=== PATIENT | male | born 1945 | race Caucasian/White ===

== ENCOUNTER 2016-07-17 06:49 | Day surgery (SDC) | payer MEDICARE, BC ==
[~2016-07-17 06:49] MED LIST: Acetaminophen TAB* 325 MG PO PRN; Buffered Lidocaine 1% SYR 3ML* 3 ML/SYR SYRINGE INTRADERM ONE; Cyclopentolate 1% OPTH.SOL* 2 ML BTL ONE; Flurbiprofen 0.03% OPTH.SOL* 2.5 ML BTL ONE; Lidocaine 1% MPF* 2 ML VIAL ONE; Neomycin/Polymy/Dex OPHTH.OIN* 3.5 GM ONE; Phenylephrine 2.5% OPTH.SOL* 2 ML BTL ONE; Povidone Iodine 5% OPTH* 30 ML BTL ONE; Tetracaine 0.5% OPTH.SOL 4 ML* 1 DROP BTL ONE; acetaZOLAMIDE TAB* 250 MG ONE
[2016-07-17] MEDS ORDERED: fentaNYL* 50 MCG/ML 2 ML VIAL (100 MCG VIAL) ONE (07:19)
[2016-07-17] MEDS ORDERED: Midazolam* 1 MG/ML 2 ML VIAL (2 MG) ONE (07:20)
[2016-07-17 09:23] VITALS: BP 124/65
--- NOTE | 2016-07-17 15:37 | OP ---
DATE OF OPERATION: 07/17/16 - [facility] DATE OF : 45 SURGEON: Feng Herman MD ANESTHESIOLOGIST: Adilson Pandey MD ANESTHESIA: Monitored anesthesia care. PRE-OP DIAGNOSIS: Cataract of the right eye. 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 OPERATIVE PROCEDURE: Cataract extraction of the right eye. IMPLANTS: SN60WF 23.5 diopter lens to the right eye. COMPLICATIONS: None. DESCRIPTION OF PROCEDURE: The patient was given phenylephrine 2.5% and cyclopentolate 1% eye drops to the operative eye in the preoperative area. The patient was brought to the operating room, where a time-out was taken to identify the correct patient, site and side of the surgery. The patient's right eye was prepped and draped in the usual sterile fashion with 5% Betadine. A second time- out was taken to verify the correct patient, site, and side of surgery and correct lens selection. A lid speculum was placed to the right eye. A 1 mm paracentesis blade was used to make a clear corneal incision in the superotemporal position. Preservative-free 1% lidocaine was injected into the anterior chamber. DuoVisc was then injected into the anterior chamber. A 2.75 mm keratome blade was used to make a triplanar incision at the inferotemporal position. Then a Malyugin ring was inserted for mechanical pupillary dilation due to inadequate pupil dilation. A cystitome was used to initiate a capsulorrhexis which was completed with Utrata forceps in a continuous and curvilinear manner. Hydrodissection lens was then performed with a BSS on a cannula. The lens could be spun in the capsular bag. The phacoemulsification handpiece was then used with a [id number] technique to remove the nucleus in its entirety using 43.87 CDE. During the process of nucleus removal, additional viscoelastic was injected in the anterior chamber to protect the endothelium. The I/A handpiece was then used to remove the residual cortical lens material. During this step, the iris demonstrated a floppy iris syndrome and had to be mechanically reposited as it was prolapsing through the main incision. DuoVisc was then injected to inflate the capsular bag. The planned SN60WF 23.5 diopter lens was then injected into the capsular bag. Then the Malyugin ring was then removed from the eye using [place] technique. The residual DuoVisc was then removed from the eye with I/A handpiece. The corneal incisions were then hydrated and no leaks occurred at physiologic pressure around 20 mmHg per palpation. The lid speculum was then removed and drapes removed. Maxitrol ointment was then placed to the surface of the operative eye. An adhesive patch and shield were then placed on the operative eye. The patient was taken to the postoperative area in stable condition. [id number]/[facility] #: [id number] [facility] HEALTH SYSTEMTianna
== END 2016-07-17 09:29 | disposition home or self-care (01) ==
LOC: OREAST 06:49
PROVIDERS: ATTEND Student in an Organized Health Care Education/Training Program
DX: H25.11 Age-related nuclear cataract, right eye (principal); H21.81 Floppy iris syndrome; E11.9 Type 2 diabetes mellitus without complications; F17.210 Nicotine dependence, cigarettes, uncomplicated
CPT/HCPCS: A9270-GY; J2250; J3010; V2632

== ENCOUNTER 2016-07-24 06:32 | Day surgery (SDC) | payer MEDICARE, BC ==
[~2016-07-24 06:32] MED LIST changes: -Cyclopentolate 1% OPTH.SOL* 2 ML BTL ONE; -Flurbiprofen 0.03% OPTH.SOL* 2.5 ML BTL ONE; -Lidocaine 1% MPF* 2 ML VIAL ONE; -Neomycin/Polymy/Dex OPHTH.OIN* 3.5 GM ONE; -Phenylephrine 2.5% OPTH.SOL* 2 ML BTL ONE; -Povidone Iodine 5% OPTH* 30 ML BTL ONE; -Tetracaine 0.5% OPTH.SOL 4 ML* 1 DROP BTL ONE; -acetaZOLAMIDE TAB* 250 MG ONE
[2016-07-24] MEDS ORDERED: fentaNYL* 50 MCG/ML 2 ML VIAL (100 MCG VIAL) ONE (07:16)
[2016-07-24] MEDS ORDERED: Midazolam* 1 MG/ML 2 ML VIAL (2 MG) ONE (07:16)
[2016-07-24 08:28] VITALS: BP 109/57
--- NOTE | 2016-07-25 00:53 | OP ---
DATE OF OPERATION: 07/24/16 - [place] [facility] DATE OF : 45 SURGEON: Feng Herman MD ANESTHESIOLOGIST: Adilson Pandey MD ANESTHESIA: Monitored anesthesia care. PRE-OP DIAGNOSIS: Cataract of the left eye with floppy iris syndrome. POST-OP DIAGNOSIS: Cataract of the left eye with floppy iris syndrome. OPERATIVE PROCEDURE: Cataract extraction of the left eye. IMPLANTS: SN60WF 23.5 diopter lens to the left eye. COMPLICATIONS: None. DESCRIPTION OF PROCEDURE: The patient was given phenylephrine 2.5% and cyclopentolate 1% eye drops to the operative eye in the preoperative area. The patient was brought to the operating room, where a time-out was taken to identify the correct patient, site and side of the surgery. The patient's left eye was prepped and draped in the usual sterile fashion with 5% Betadine. A second time- out was taken to verify the correct patient, site, and side of surgery and correct lens selection. A lid speculum was placed to the left eye. A 1 mm paracentesis blade was used to make a clear corneal incision in the inferotemporal position. Preservative-free 1% lidocaine was injected into the anterior chamber. DuoVisc was then injected into the anterior chamber. A 2.75 mm keratome blade was used to make a triplanar incision at the superotemporal position. Then a Malyugin ring was inserted for mechanical pupillary dilation due to floppy iris syndrome as observed in the right eye during previous surgery. A cystotome was used to initiate a capsulorrhexis which was completed with Utrata forceps in a continuous and curvilinear manner. Hydrodissection lens was then performed with a BSS on a cannula. The lens could be spun in the capsular bag. The phacoemulsification handpiece was then used with a divide-and -conquer technique to remove the nucleus in its entirety with a 21.87 CDE. The I/A handpiece was then used to remove the residual cortical lens material. DuoVisc was then injected to inflate the capsular bag. The planned SN60WF 23.5 diopter lens was then injected into the capsular bag. The residual DuoVisc was then removed from the eye with I/A handpiece. The corneal incisions were then hydrated and no leaks occurred at physiologic pressure around 20 mmHg per palpation. The lid speculum was then removed and drapes removed. Maxitrol ointment was then placed to the surface of the operative eye. An adhesive patch and shield were then placed on the operative eye. The patient was taken to the postoperative area in stable condition. [id number]/[facility] #: [id number] MTDD
== END 2016-07-24 08:38 | disposition home or self-care (01) ==
LOC: OREAST 06:32 → EDSTATUS 07:45 → OREAST 08:38
PROVIDERS: ATTEND Student in an Organized Health Care Education/Training Program
DX: H25.12 Age-related nuclear cataract, left eye (principal); E10.3293 Type 1 diabetes mellitus with mild nonproliferative diabetic retinopathy without macular edema, bilateral; H21.81 Floppy iris syndrome; F17.210 Nicotine dependence, cigarettes, uncomplicated
CPT/HCPCS: J2250; J3010; V2632

== ENCOUNTER 2019-03-05 10:01 | Emergency (ER) | payer MEDICARE, BC ==
[2019-03-05 10:12] VITALS: BP 112/59
--- NOTE | 2019-03-05 10:40 | UC ---
Throat Pain/Nasal Jose Antonio HPI - HPI Summary HPI Summary: 73 yo diabetic smoker, with 3 day history of chest congestion and dry cough. He has a past history of pneumonia, and comes today because in his experience antibiotics have prevented progression to pneumonia in the past. No fever, no chest pain or dizziness. 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 Last visit here was 2016, negative CXR aside from hyperinflation, treated with zithromax. He has an inhaler which he does not use. - History of Current Complaint Chief Complaint: UCRespiratory Stated Complaint: COUGH, AND CHEST CONGESTION Time Seen by Provider: 03/05/19 10:29 Hx Obtained From: Patient Onset/Duration: Gradual Onset, Lasting Days - 4 Severity: Moderate Pain Intensity: 0 Cough: Nonproductive Associated Signs & Symptoms: Positive: Negative - Epiglottits Risk Factors Epiglottis Risk Factors: Negative - Allergies/Home Medications Allergies/Adverse Reactions: Allergies Allergy/AdvReac Type Severity Reaction Status Date / Time ciprofloxacin Allergy liver Verified 03/05/19 10:13 problems mesalamine [From Asacol] Allergy GI Upset Verified 03/05/19 10:13 PMH/Surg Hx/FS Hx/Imm Hx Endocrine History: Diabetes 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 - Surgical History Surgical History: Yes Surgery Procedure, Year, and Place: Back surgery l4/l5 fusion, Right wrist broken/repaired, Tonsillectomy - Family History Known Family History: Positive: Other - mother of lupus; father age 91 of old age. - Social History Occupation: Employed Full-time - [employer] Lives: With Family Alcohol Use: Rare Alcohol Amount: 3 beers a month Substance Use Type: None Smoking Status (MU): Heavy Every Day Tobacco Smoker Type: Cigarettes Amount Used/How Often: 1/2 ppd Length of Time of Smoking/Using Tobacco: since age [age] Have You Smoked in the Last Year: Yes - Immunization History Most Recent Influenza Vaccination: NEVER Most Recent Tetanus Shot: UTD Most Recent Pneumonia Vaccination: NEVER Review of Systems All Other Systems Reviewed And Are Negative: Yes Constitutional: Positive: Fatigue Skin: Positive: Negative Eyes: Positive: Negative ENT: Positive: Nasal Discharge Respiratory: Positive: Cough. Negative: Shortness Of Breath Cardiovascular: Negative: Palpitations, Chest Pain Gastrointestinal: Positive: Negative Genitourinary: Positive: Negative Motor: Positive: Negative Neurovascular: Positive: Negative Psychological: Positive: Negative Is Patient Immunocompromised?: No Physical Exam Triage Information Reviewed: Yes Appearance: Ill-Appearing - looks chronically unwell, older than stated age. No acute distress., Thin Vital Signs: Initial Vital Signs Temp 98.4 F 03/05/19 10:09 Pulse 85 03/05/19 10:09 Resp 17 03/05/19 10:09 BP 112/59 03/05/19 10:09 Pulse Ox 100 03/05/19 10:09 ENT: Positive: Pharynx normal, TMs normal Neck: Positive: Supple, Nontender, No Lymphadenopathy Respiratory: Positive: Decreased breath sounds - mild decrease. Negative: Crackles, Rhonchi, Wheezing Cardiovascular: Positive: RRR, No Murmur Musculoskeletal Exam: Normal Neurological Exam: Normal Psychological Exam: Normal Skin Exam: Normal Throat Pain/Nasal Course/Dx - Course Course Of Treatment: reviewed record, will treat with azithromycin due to chronic smoking and clinical evidence of COPD. - Differential Dx/Diagnosis Differential Diagnosis/HQI/PQRI: Laryngitis, Pharyngitis, URI, Other - pneumonia Provider Diagnosis: COPD exacerbation Discharge ED - Sign-Out/Discharge Documenting (check all that apply): Patient Departure All imaging exams completed and their final reports reviewed: No Studies - Discharge Plan Condition: Stable Disposition: HOME Patient Education Materials: COPD (Chronic Obstructive Pulmonary Disease) (ED) Referrals: Aletha Meza MD [Primary Care Provider] - Additional Instructions: Begin use of azithomycin due to recent increase in cough, similar to your past experience of illness that can precede worsening to bronchitis or pneumonia. If you develop fever or shortness of breath, please follow up with Dr. Meza or here for evaluation. - Billing Disposition and Condition Condition: STABLE Disposition: Home
== END 2019-03-05 10:55 | disposition home or self-care (01) ==
LOC: UCEAST 10:01
DX: J44.1 Chronic obstructive pulmonary disease with (acute) exacerbation (principal); F17.210 Nicotine dependence, cigarettes, uncomplicated; E11.9 Type 2 diabetes mellitus without complications; Z88.1 Allergy status to other antibiotic agents; Z88.8 Allergy status to other drugs, medicaments and biological substances
CPT/HCPCS: 99212; G0463

== ENCOUNTER 2019-03-16 13:19 | Emergency (ER) | payer MEDICARE, BC ==
--- NOTE | 2019-03-16 13:31 | UC ---
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 No fever / chills. + nasal congestion and runny nose. Reports had similar sx earlier this month, seen in [facility] by Dr. Hunt 03/05/19 for copd related issues. Mr. Ramachandran reports that the azithromycin worked well, and he felt much better until recently. No fever / chills. Denies pain in chest, palpitations. No sob except with cough. No rash. No recent visual or auditory changes. Denies GI sx. 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 Smokes approx 10 cig / day. + hx DM, reports that he checks his blood glucose frequently without new sign issues. - History of Current Complaint Stated Complaint: MED REFILL Hx Obtained From: Patient - Allergy/Home Medications Allergies/Adverse Reactions: Allergies Allergy/AdvReac Type Severity Reaction Status Date / Time ciprofloxacin Allergy liver Verified 03/16/19 13:37 problems mesalamine [From Asacol] Allergy GI Upset Verified 03/16/19 13:37 PMH/Surg Hx/FS Hx/Imm Hx Previously Healthy: No - dm copd tobacco see RN notes as well - Surgical History Surgical History: Yes Surgery Procedure, Year, and Place: Back surgery l4/l5 fusion, Right wrist broken/repaired, Tonsillectomy - Family History Known Family History: Positive: Other - mother of lupus; father age 91 of old age. 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 Alcohol Use: Rare Alcohol Amount: 3 beers a month Substance Use Type: None Smoking Status (MU): Current Every Day Smoker Type: Cigarettes Amount Used/How Often: 1/2 ppd Length of Time of Smoking/Using Tobacco: since age [age] Have You Smoked in the Last Year: Yes - Immunization History Most Recent Influenza Vaccination: NEVER Most Recent Tetanus Shot: UTD Most Recent Pneumonia Vaccination: NEVER Review of Systems All Other Systems Reviewed And Are Negative: Yes Constitutional: Positive: Negative Skin: Positive: Negative Eyes: Positive: Negative ENT: Positive: Nasal Discharge, Sinus Congestion Respiratory: Positive: Cough Cardiovascular: Positive: Negative Gastrointestinal: Positive: Negative Genitourinary: Positive: Negative Motor: Positive: Negative Neurovascular: Positive: Negative Musculoskeletal: Positive: Negative Neurological: Positive: Negative Psychological: Positive: Negative Is Patient Immunocompromised?: No Physical Exam Triage Information Reviewed: Yes Appearance: Well-Appearing - sitting up, self ambulates to exam table, Thin Vital Signs Reviewed: Yes Eye Exam: Normal - grossly nad, perrla, grossly tracks all directions ENT: Positive: Pharyngeal erythema - mild post pharyngeal redness (c/w cough), no sores / exudates, uvula midline., Nasal congestion, TM dull - TM au dull o/w nad Neck exam: Normal Neck: Positive: Supple, Nontender Respiratory Exam: Other - BS equal and clear. No rtx. + mild rhonchorus cough. Respiratory: Positive: Chest non-tender, Lungs clear, Normal breath sounds, No respiratory distress, No accessory muscle use Cardiovascular Exam: Normal Cardiovascular: Positive: RRR, Pulses Normal, Brisk Capillary Refill Abdomen Description: Positive: Nontender Bowel Sounds: Positive: Present Musculoskeletal Exam: Other - gait slow, steady. moves x 4 ext's. No unilateral edema. Several areas of thin, flaky skin, scattered hemosiderosis incidentally noted. Thin. Neurological: Positive: Alert - conversing easily and appropriately facial expressions grossly symmetric. mmm. Moves well x 4 ext's. Psychological Exam: Normal - nad Skin Exam: Normal - nondiaphoretic. no visible or reported rash. Course/Dx - Course Course Of Treatment: Reviewed recent records as noted in [facility], including Dr. Armas's notes. Noted CT chest report from 2017. Mr. Ramachandran reports that he has not seen his PCP in a long time, but stays in regular touch with the office. Reports that he is afraid that if he goes to the office, he will be referred to several other doctors, and he doesn't like going to see doctors. Upon questioning, Mr. Ramachandran reports that he did lose a significant amount of weight (?#'s) approx 10 mo ago, which he attributes to lack of appetite, but reports that he has been eating lately. Also might sometimes feels a little unsteady with position change, but not now, no loc, focal p/d/w, shaking, etc. I implored Mr. Ramachandran to consider further testing and evaluation by PCP. He carefully considered but politely but firmly declined further ancillaries here, including chest xray. 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 He did however, agree to call PCP this week to schedule an appointment, juliann since he is planning to go out of town next month. Rx azithromycin x 1. Reviewed with pt. Questions as posed answered to the best of my ability. - Diagnoses Provider Diagnosis: Rhinosinusitis, Malnutrition Discharge ED - Sign-Out/Discharge Documenting (check all that apply): Patient Departure All imaging exams completed and their final reports reviewed: No Studies - Discharge Plan Condition: Stable Disposition: HOME Prescriptions: Azithromyxin ROSSANA (NF) [Z-Rossana (Zithromax) 250 mg tabs #6] 2 tab PO .TODAY, THEN 1 DAILY #6 tab Patient Education Materials: Malnutrition (DC), Rhinosinusitis (ED) Referrals: Aletha Meza MD [Primary Care Provider] - Additional Instructions: PLEASE follow up with Dr. Meza - call THIS WEEK for appointment SOON POSSIBLE. It is VERY IMPORTANT that you consider further blood work / imaging studies to get to the bottom of your symptoms. Please go to the EMERGENCY DEPARTMENT for any worse or new problems. Hydrate. Please eat well, including protein. Please continue to check your blood glucose levels frequently. - Billing Disposition and Condition Condition: STABLE Disposition: Home
[2019-03-16 13:38] VITALS: BP 94/53
--- NOTE | 2019-03-17 08:56 | UC ---
- Progress Note Progress Note: I spoke with Dr. Meza via telephone just now. Her office will reach out to Mr. Ramachandran to schedule an appointment. . Course/Dx - Diagnoses Provider Diagnoses: Rhinosinusitis, Malnutrition Discharge ED - Sign-Out/Discharge Documenting (check all that apply): Post-Discharge Follow Up All imaging exams completed and their final reports reviewed: No Studies - Discharge Plan Condition: Stable Disposition: HOME Prescriptions: Azithromyxin ROSSANA (NF) [Z-Rossana (Zithromax) 250 mg tabs #6] 2 tab PO .TODAY, THEN 1 DAILY #6 tab Patient Education Materials: Malnutrition (DC), Rhinosinusitis (ED) Referrals: Aletha Meza MD [Primary Care Provider] - Additional Instructions: PLEASE follow up with Dr. Meza - call THIS WEEK for appointment SOON POSSIBLE. It is VERY IMPORTANT that you consider further blood work / imaging studies to get to the bottom of your symptoms. Please go to the EMERGENCY DEPARTMENT for any worse or new problems. Hydrate. Please eat well, including protein. Please continue to check your blood glucose levels frequently. - Billing Disposition and Condition Condition: STABLE Disposition: Home
== END 2019-03-16 14:07 | disposition home or self-care (01) ==
LOC: UCEAST 13:19
DX: J32.9 Chronic sinusitis, unspecified (principal); E46 Unspecified protein-calorie malnutrition; F17.210 Nicotine dependence, cigarettes, uncomplicated; Z88.1 Allergy status to other antibiotic agents; Z88.8 Allergy status to other drugs, medicaments and biological substances
CPT/HCPCS: 99212; G0463

== ENCOUNTER 2019-04-04 10:20 | Emergency (ER) | payer MEDICARE, BC ==
--- NOTE | 2019-04-04 11:00 | ED ---
Complex/Multi-Sys Presentation - HPI Summary HPI Summary: 74 year old M presenting to [facility] with Melissa complains of jaundice x3 days. Patient additionally complains of dark yellow urine x1.5 months. Patient states he had a cold 5 weeks ago. Hx pneumonia. States he went to [facility] 4 weeks ago. States he also went to primary care provider's office where he saw the nurse practitioner who prescribed him amoxicillin. Patient states that after taking amoxicillin, his blood glucose went up to 500. Hx diabetes for which he takes insulin. Patient states his cold has resolved. Patient states he has not yet had CXR. Patient states that on Friday 03/30, patient felt warm to touch, and sweated it out in the shower. Patient denies fever, chills, diaphoresis, erythema of eyes, sore throat, chest pain, shortness of breath, cough, abdominal pain, nausea/vomiting, dysuria, hematuria, myalgia, edema, rash , or dizziness. The patient rates the pain 3/10 in severity. Symptoms aggravated by nothing. Symptoms alleviated by nothing. States he hasn't had any alcohol in the last 5 weeks. No hx alcoholism, hepatitis C, cirrhosis, liver cancer. 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 Patient states he sees an shoe dresser and urologist. states patient missed his urologist appointment several weeks ago. states that patient has hx testicular infection for which he was placed on several antibiotics after which he found out taking cirpo made him have jaundice. Surgical hx: back and right wrist. - History Of Current Complaint Chief Complaint: EDGeneral Time Seen by Provider: 04/04/19 10:37 Hx Obtained From: Patient, Family/Audio Production Instructor - Onset/Duration: Lasting Days, Lasting Weeks, Still Present Timing: Constant Severity Currently: Mild - 3/10 Aggravating Factor(s): Nothing Alleviating Factor(s): Nothing Associated Signs And Symptoms: Positive: Other - dark yellow urine; NEG: fever, chills, diaphoresis, erythema of eyes, sore throat, chest pain, shortness of breath, cough, abdominal pain, nausea/vomiting, dysuria, hematuria, myalgia, edema, rash, or dizziness - Allergies/Home Medications Allergies/Adverse Reactions: Allergies Allergy/AdvReac Type Severity Reaction Status Date / Time ciprofloxacin Allergy liver Verified 04/04/19 10:58 problems mesalamine [From Asacol] Allergy GI Upset Verified 04/04/19 10:58 prednisone AdvReac See Comment Verified 04/04/19 10:58 Home Medications: Home Medications Cholecalciferol TAB* [Vitamin D TAB*] 50,000 units PO MONTHLY 04/04/19 [History Confirmed 04/04/19] Insulin Lispro [Humalog Mike Kwikpen] 0 unit SUBCUT AC 04/04/19 [History Confirmed 04/04/19] Lidocaine PATCH 5%* [Lidoderm 5% Patch*] 1 - 3 patch TRANSDERM DAILY 04/04/19 [ History Confirmed 04/04/19] Nicotine Inhaler* (NF) [Nicotine Inhaler*] 6 - 16 puff INH DAILY PRN 04/04/19 [ History Confirmed 04/04/19] PMH/Surg Hx/FS Hx/Imm Hx Endocrine/Hematology History: Reports: Hx Diabetes - type 1 Denies: Hx Thyroid Disease Cardiovascular History: Reports: Hx Coronary Artery Disease Denies: Hx Hypertension, Hx Pacemaker/ICD Comment Only: Other Cardiovascular Problems/Disorders - PT DENIES ALL HX OF HEART OR LUNGS Respiratory History: Reports: Hx Chronic Obstructive Pulmonary Disease (COPD) Denies: Hx Asthma GI History: Reports: Hx Crohn's Disease, Hx Gastroesophageal Reflux Disease Denies: Hx Ulcer History: Reports: Other Problems/Disorders - ENLARGE PROSTATE Musculoskeletal History: Reports: Other Musculoskeletal History Sensory History: Reports: Hx Cataracts - BILATERAL, Hx Contacts or Glasses Denies: Hx Hearing Aid Opthamlomology History: Reports: Hx Cataracts - BILATERAL, Hx Contacts or Glasses Psychiatric History: Denies: Hx Panic Disorder - Surgical History Surgery Procedure, Year, and Place: Back surgery l4/l5 fusion, Right wrist broken/repaired, Tonsillectomy Hx Anesthesia Reactions: No Infectious Disease History: No Infectious Disease History: Denies: Hx Clostridium Difficile, Hx Hepatitis, Hx Human Immunodeficiency Virus (HIV), Hx of Known/Suspected MRSA, Hx Shingles, Hx Tuberculosis, Hx Known/ Suspected VRE, Hx Known/Suspected VRSA, History Other Infectious Disease, Traveled Outside the [place] in Last 30 Days - Family History Known Family History: Positive: Other - mother of lupus; father age 91 of old age. - Social History Alcohol Use: Rare Alcohol Amount: 3 beers a month Substance Use Type: Reports: None Hx Tobacco Use: Yes Smoking Status (MU): Current Every Day Smoker Type: Cigarettes Amount Used/How Often: 1/2 ppd Length of Time of Smoking/Using Tobacco: since age [age] Have You Smoked in the Last Year: Yes Review of Systems Negative: Fever, Chills Negative: Erythema Negative: Sore Throat Negative: Chest Pain Negative: Shortness Of Breath, Cough Negative: Abdominal Pain, Vomiting, Nausea Positive: other - dark yellow urine. Negative: dysuria, hematuria Negative: Myalgia, Edema Positive: Other - jaundice. Negative: Rash Neurological: Negative - Dizziness All Other Systems Reviewed And Are Negative: Yes Physical Exam - Summary Physical Exam Summary: Constitutional: Well-developed, Well-nourished, Alert. (-) Distressed Skin: Warm, Dry, jaundice HENT: Normocephalic; Atraumatic Eyes: scleral icterus Neck: Musculoskeletal ROM normal neck. (-) JVD, (-) Stridor, (-) Tracheal deviation Cardio: Rhythm regular, rate normal, Heart sounds normal; Intact distal pulses; The pedal pulses are 2+ and symmetric. Radial pulses are 2+ and symmetric. (-) Murmur Pulmonary/Chest wall: Effort normal. (-) Respiratory distress, (-) Wheezes, (-) Rales Abd: Soft, (-) tenderness, (-) Distension, (-) Guarding, (-) Rebound Musculoskeletal: (-) Edema Lymph: (-) Cervical adenopathy Neuro: Alert, Oriented x3 Psych: Mood and affect Normal Triage Information Reviewed: Yes Vital Signs On Initial Exam: Initial Vitals Temp Pulse Resp BP Pulse Ox 98.4 F 82 16 141/83 100 04/04/19 10:22 04/04/19 10:22 04/04/19 10:22 04/04/19 10:22 04/04/19 10:22 Vital Signs Reviewed: Yes Procedures - Sedation Patient Received Moderate/Deep Sedation with Procedure: No Diagnostics - Vital Signs Vital Signs Temp Pulse Resp BP Pulse Ox 04/04/19 10:22 98.4 F 82 16 141/83 100 - Laboratory Result Diagrams: 04/04/19 11:15 04/04/19 11:15 Lab Statement: Any lab studies that have been ordered have been reviewed, and results considered in the medical decision making process. - CT Abd/Pel CT Interpretation Completed By: Radiologist Summary of CT Findings: 1. SMALL AMOUNT OF ASCITES. 2. BILATERAL PLEURAL EFFUSIONS WITH BIBASILAR CONSOLIDATION. 3. ATHEROSCLEROSIS. 4. NO APPRECIABLE BILIARY DILATATION. 5. FATTY INFILTRATION OF LIVER. ED physician has reviewed this report. - Ultrasound Gallbladder Ultrasound Interpretation Completed By: Radiologist Summary of Ultrasound Findings: #. Cholelithiasis and borderline thickened gallbladder wall as well as small volume of pericholecystic fluid. Negative for biliary dilatation or sonographic Colby's sign. The gallbladder wall thickening and pericholecystic fluid is nonspecific in setting of hepatocellular disease. #. Negative for conspicuous stones within the visualized portion of the nondilated common bile duct. #. Heterogeneous and increased hepatic echogenicity favoring hepatocellular disease. possibly hepatitis with hepatosteatosis. #. Small RIGHT pleural effusion. ED physician has reviewed this report. Re-Evaluation - Re-Evaluation First Eval Re-Evaluation Time: 11:47 Change: Unchanged Comment: aware of total bilirubin 14.40 Second Eval Re-Evaluation Time: 15:28 Change: Unchanged Comment: patient states he was taking amoxicillin for about 1.5 weeks and finished it yesterday Complex Multi-Symp Course/Dx Course Of Treatment: 74 year old M presenting to [facility] complains of jaundice x3 days and dark yellow urine x1.5 months. Patient states he recently finished a 1.5 week course of amoxicillin yesterday for dx bronchitis. No hx alcoholism, hepatitis C, cirrhosis, liver cancer. Patient states he does not have a pancreas. Upon exam, the patient has jaundice and scleral icterus. Bloodwork results with no significant abnormalities except for RBC 3.33, Hgb 10.3, Hct 30 , MPV 12.0, absolute monocytes 1.0, absolute eos 0.7, calcium 8.3, total bilirubin 14.40, AST 90, ALT 68, alkaline phosphatase 532, total protein 5.4, albumin 3.0, lipase <10. Toxicology results with no significant abnormalities. Alcohol <10. Serology results negative for Hepatitis A, B, and C. CT Abd/Pel shows, per radiologist: 1. SMALL AMOUNT OF ASCITES. 2. BILATERAL PLEURAL EFFUSIONS WITH BIBASILAR CONSOLIDATION. 3. ATHEROSCLEROSIS. 4. NO APPRECIABLE BILIARY DILATATION. 5. FATTY INFILTRATION OF LIVER. US Gallbladder shows, per radiolgoist: #. Cholelithiasis and borderline thickened gallbladder wall as well as small volume of pericholecystic fluid. Negative for biliary dilatation or sonographic Colby's sign. The gallbladder wall thickening and pericholecystic fluid is nonspecific in setting of hepatocellular disease. #. Negative for conspicuous stones within the visualized portion of the nondilated common bile duct. #. Heterogeneous and increased hepatic echogenicity favoring hepatocellular disease. possibly hepatitis with hepatosteatosis. #. Small RIGHT pleural effusion. Dr. Leslie GI, believes patient's sx are drug-induced and agrees to consult on patient in the hospital. Dr. Avila, hospitalist, agrees to admit patient. The patient will be admitted to the hospitalist. Dr. Avila evaluated patient in the ED. He spoke with Dr. Leslie who agreed to see patient on Saturday 04/07 for repeat labs. The patient will be discharged home with follow up from Dr. Leslie on Saturday 04/07. I do not suspect cholangitis or cholecystitis. He was instructed to return to the Emergency Department for new or worsening symptoms. Patient understands and is agreeable to this plan - Diagnoses Provider Diagnoses: Jaundice - Physician Notifications Discussed Care Of Patient With: Javier Leslie Time Discussed With Above Provider: 15:26 Instructed by Provider To: Other - SATINDER Zapien, believes patient's sx are drug-induced and agrees to consult on patient in the hospital. Dr. Avila, hospitalist, agrees to admit patient at 15:37. Discharge ED - Sign-Out/Discharge Documenting (check all that apply): Patient Departure - Discharge - Discharge Plan Condition: Stable Disposition: HOME Patient Education Materials: Jaundice (ED) Referrals: Javier Leslie MD [Medical Doctor] - 04/07/19 Additional Instructions: Follow up with Dr. Leslie on Saturday 04/07 for repeat labs. Return to the Emergency Department for changing or worsening symptoms. - Attestation Statements Document Initiated by Scribe: Yes Documenting Scribe: Luli Rubalcava Provider For Whom Scribe is Documenting (Include Credential): Luca Jimenez MD Scribe Attestation: Luli Lopez, scribed for Luca Jimenez MD on 04/04/19 at 1650. Status of Scribe Document: Ready
[2019-04-04 11:34] LABS: Hematocrit 30 % (42-52); Hemoglobin 10.3 g/dL (14.0-18.0); Mean Corpuscular HGB Conc 35 g/dL (31-36); Mean Corpuscular Hemoglobin 31 pg (27-31); Mean Corpuscular Volume 89 fL (80-94); Platelet Count 219 10^3/uL (150-450); Red Blood Count 3.33 10^6 /uL (4.18-5.48); Red Cell Distribution Width 14 % (10-15); White Blood Count 9.8 10^3/uL (3.5-10.8)
[2019-04-04 11:45] LABS: ALT 68 U/L (7-52); AST 90 U/L (13-39); Albumin/Globulin Ratio 1.3 (1-3); Alkaline Phosphatase 532 U/L (34-104); Anion Gap 5 mmol/L (2-11); Blood Urea Nitrogen 12 mg/dL (6-24); C Reactive Protein 4.35 mg/L (<8.01); CO2 Carbon Dioxide 28 mmol/L (22-32); Calcium 8.3 mg/dL (8.6-10.3); Chloride 103 mmol/L (101-111); EGFR Non-African American 66.1 (>60); Globulin 2.4 g/dL (2-4); Glucose 77 mg/dL (70-100); Potassium 3.1 mmol/L (3.5-5.0); Sodium 136 mmol/L (135-145); Total Protein 5.4 g/dL (6.4-8.9)
[2019-04-04 12:19] LABS: ABS Basophils 0.1 10^3/ul (0-0.2); ABS Eosinophils 0.7 10^3/ul (0-0.6)
[2019-04-04] MEDS ORDERED: Iodixanol* (CONTRAST) 320 MG/ML 100 ML SDV IV ONE (13:16)
[2019-04-04 14:13] LABS: Hepatitis B Surface Antigen Nonreactive (Nonreactive)
[2019-04-04 14:31] LABS: Hepatitis C Antibody Negative (Negative)
--- NOTE | 2019-04-04 16:11 | ADMNOTE ---
Subjective Date of Service: 04/04/19 Review of Systems - Measurements Intake and Output: Intake and Output Last 24 Hours 04/02/19 04/03/19 04/04/19 04/05/19 06:59 06:59 06:59 06:59 Weight 110 lb Objective Vital Signs - 8 hr 04/04/19 04/04/19 04/04/19 10:22 11:06 11:07 Temperature 98.4 F Pulse Rate 82 77 72 Respiratory 16 Rate Blood Pressure 141/83 145/72 (mmHg) O2 Sat by Pulse 100 99 99 Oximetry 04/04/19 04/04/19 04/04/19 11:37 12:00 12:36 Temperature Pulse Rate 72 77 76 Respiratory Rate Blood Pressure 134/65 163/88 (mmHg) O2 Sat by Pulse 99 99 99 Oximetry 04/04/19 04/04/19 04/04/19 13:07 13:49 14:00 Temperature Pulse Rate 80 82 Respiratory Rate Blood Pressure 149/79 (mmHg) O2 Sat by Pulse 94 96 Oximetry 04/04/19 04/04/19 04/04/19 14:07 14:37 15:00 Temperature Pulse Rate 79 77 Respiratory Rate Blood Pressure 126/79 140/81 (mmHg) O2 Sat by Pulse 96 93 Oximetry 04/04/19 15:07 Temperature Pulse Rate 77 Respiratory Rate Blood Pressure 125/58 (mmHg) O2 Sat by Pulse 100 Oximetry Result Diagrams: 04/04/19 11:15 04/04/19 11:15 Assess/Plan/Problems-Billing Assessment:
[2019-04-04 16:35] LABS: INR 1.32 (0.82-1.09)
[2019-04-04 17:08] VITALS: BP 132/72
--- NOTE | 2019-04-04 18:41 | CONS ---
CC: Dr. Aletha Molina; Dr. Leslie MEDICAL CONSULTATION: DATE OF CONSULT: 04/04/19 HISTORY OF PRESENT ILLNESS: This 74-year-old man came to the emergency room because of painless vitaliy dice. His noticed this a couple days ago. The patient has not lost his appetite. He has not h ad any vomiting. He does not think his weight is changed. There is no pain. He has been treated fo r a cough from bronchitis. On 03/05/19, he received I believe a 5-day course of azithromycin. On , he received a second 5-day course of azithromycin. On 03/21/19, he received amoxicillin/clav ulanate 875 prescription of 20 tablets; I am not sure how long he took this for. On 03/21/19, he rec eived a prescription for prednisone 20 mg tablets, 10 of those. He says he took 2 one day and 2 anot her day. The patient has noted that his urine was orange. He did not note any change in his stool, but I do n ot think he looked at his stool. PAST MEDICAL HISTORY: He has a history of Crohn's disease in the past. PAST SURGICAL HISTORY: In the past, he has had laminectomy, wrist surgery, tonsillectomy. HOME MEDICATIONS: Include: 1. Insulin degludec. 2. Insulin lispro. 3. Lidocaine patch. 4. Naproxen. 5. Tamsulosin. 6. Albuterol inhaler. SOCIAL HISTORY: He continues to smoke. PHYSICAL EXAM: The patient was deeply jaundiced; however, he was quite alert. He appeared to be in no distress. He was completely oriented. He was in good spirits. He was very anxious to go home, b wi promised he would follow up strictly with our instructions. Heart and lungs were unremarkable to auscultation and percussion. Abdomen was soft. No mass, tenderness, or organomegaly. There was no pedal edema. LABORATORY DATA: Laboratory testing showed a white count of 9.8, hematocrit 30, platelets 219. Pota ssium 3.1, creatinine 1.09, sodium 136. Total bili 14.4, AST 90, ALT 68, alkaline phosphatase 532. INR is 1.32. C-reactive protein 4.35. Albumin 3.0. Lipase less than 10. Serum alcohol less than 10 . IMPRESSION AND PLAN: The patient has painless jaundice. He has had 2 courses of azithromycin and so me amount of amoxicillin/clavulanate. CT scan showed small amount of ascites, some bilateral pleural effusions with bibasilar consolidation, atherosclerosis, no appreciable biliary dilatation, and fatt y infiltration of the liver. Ultrasound of the gallbladder showed cholelithiasis and borderline thic kened gallbladder with a small volume of pericholecystic fluid. There were no conspicuous stones in the visualized portion of the nondilated common bile duct. There was heterogeneous and increased hepa tic echogenicity favoring hepatocellular disease. I discussed the case with Dr. Jimenez and Dr. Leslie. Dr. Leslie would like to see the patient very soon early next week in consultation. The patient will have a liver panel and a repeat INR on y, 04/07/19, and Dr. Leslie will be in touch with him for further followup. I advised the patient not to smoke and to avoid secondhand smoke. I did prescribe an albuterol inhal er for which he had run out of refills. [id number]/[facility] #: [id number]
== END 2019-04-04 17:05 | disposition home or self-care (01) ==
LOC: ED 10:20
DX: R17 Unspecified jaundice (principal); R18.8 Other ascites; J90 Pleural effusion, not elsewhere classified; I70.0 Atherosclerosis of aorta; K80.20 Calculus of gallbladder without cholecystitis without obstruction; E10.9 Type 1 diabetes mellitus without complications; I25.10 Atherosclerotic heart disease of native coronary artery without angina pectoris; J44.9 Chronic obstructive pulmonary disease, unspecified; K50.90 Crohn's disease, unspecified, without complications; K21.9 Gastro-esophageal reflux disease without esophagitis; F17.210 Nicotine dependence, cigarettes, uncomplicated; Z79.4 Long term (current) use of insulin; Z79.899 Other long term (current) drug therapy; Z88.1 Allergy status to other antibiotic agents; Z88.8 Allergy status to other drugs, medicaments and biological substances
CPT/HCPCS: 36415; 74177; 76705; 80053; 80074; 80320; 83605; 83690; 85025; 85610; 86140; 99283; G0480; Q9967

== ENCOUNTER 2019-04-28 13:38 | Emergency (ER) | payer MEDICARE, BC ==
[2019-04-28 13:44] VITALS: BP 145/90
--- NOTE | 2019-04-28 14:44 | ED ---
Shortness of Breath - HPI Summary HPI Summary: Patient complains of new onset bilateral pedal edema, left worse than right, SOB and left lateral chest pain when lying down at night 2.5 weeks. CP worse with inhalation. Less CP and less SOB during the day, but intermittent mild SOB during the day, even at rest. Denies trauma as source of left lateral chest pain. Denies fever, cough, sore throat, and/V/D, abdominal pain, change in urine , change in BM, rash. Medical history is CAD, COPD, DM, Crohn's. Positive smoker for 60 years. Has an inhaler at home that he received 1 month ago. - History of Current Complaint Chief Complaint: EDGeneral Time Seen by Provider: 04/28/19 14:37 Hx Obtained From: Patient Onset/Duration: Gradual Onset, Lasting Weeks Timing: Intermittent Episodes Lasting: Current Severity: Moderate Dyspnea At: Orthopena Aggravating Factors: Deep Breaths, Recumbent Position Alleviating Factors: Upright Position Associated Signs & Symptoms: Edema - Allergy/Home Medications Allergies/Adverse Reactions: Allergies Allergy/AdvReac Type Severity Reaction Status Date / Time ciprofloxacin Allergy liver Verified 04/04/19 10:58 problems mesalamine [From Asacol] Allergy GI Upset Verified 04/04/19 10:58 prednisone AdvReac See Comment Verified 04/04/19 10:58 PMH/Surg Hx/FS Hx/Imm Hx Endocrine/Hematology History: Reports: Hx Diabetes - type 1 Denies: Hx Thyroid Disease Cardiovascular History: Reports: Hx Coronary Artery Disease Denies: Hx Hypertension, Hx Pacemaker/ICD Comment Only: Other Cardiovascular Problems/Disorders - PT DENIES ALL HX OF HEART OR LUNGS Respiratory History: Reports: Hx Chronic Obstructive Pulmonary Disease (COPD) Denies: Hx Asthma GI History: Reports: Hx Crohn's Disease, Hx Gastroesophageal Reflux Disease Denies: Hx Ulcer History: Reports: Other Problems/Disorders - ENLARGE PROSTATE Musculoskeletal History: Reports: Other Musculoskeletal History Sensory History: Reports: Hx Cataracts - BILATERAL, Hx Contacts or Glasses Denies: Hx Hearing Aid Opthamlomology History: Reports: Hx Cataracts - BILATERAL, Hx Contacts or Glasses EENT History: Denies: Hx Deafness Neurological History: Denies: Hx Dementia Psychiatric History: Denies: Hx Panic Disorder - Surgical History Surgery Procedure, Year, and Place: Back surgery l4/l5 fusion, Right wrist broken/repaired, Tonsillectomy Hx Anesthesia Reactions: No Infectious Disease History: No Infectious Disease History: Denies: Hx Clostridium Difficile, Hx Hepatitis, Hx Human Immunodeficiency Virus (HIV), Hx of Known/Suspected MRSA, Hx Shingles, Hx Tuberculosis, Hx Known/ Suspected VRE, Hx Known/Suspected VRSA, History Other Infectious Disease, Traveled Outside the [place] in Last 30 Days - Family History Known Family History: Positive: Other - mother of lupus; father age 91 of old age. - Social History Alcohol Use: Rare Alcohol Amount: 3 beers a month Substance Use Type: Reports: None Hx Tobacco Use: Yes Smoking Status (MU): Current Every Day Smoker Type: Cigarettes Amount Used/How Often: 1/2 ppd Length of Time of Smoking/Using Tobacco: since age [age] Have You Smoked in the Last Year: Yes Review of Systems Constitutional: Negative Eyes: Negative ENT: Negative Positive: Chest Pain Positive: Shortness Of Breath Gastrointestinal: Negative Genitourinary: Negative Musculoskeletal: Negative Skin: Other Neurological: Negative Psychological: Normal All Other Systems Reviewed And Are Negative: Yes Physical Exam - Summary Physical Exam Summary: Mild 1+ pitting edema to left foot and ankle. Even more mild pitting edema to right foot and ankle. Lung sounds clear to auscultation bilaterally. Regular rate and rhythm. Minimal tenderness with palpation of left lateral chest wall. Abdomen soft nontender. ENT exam unremarkable. Triage Information Reviewed: Yes Vital Signs On Initial Exam: Initial Vitals Temp Pulse Resp BP Pulse Ox 99.4 F 87 19 145/90 92 04/28/19 13:40 04/28/19 13:40 04/28/19 13:40 04/28/19 13:40 04/28/19 13:40 Vital Signs Reviewed: Yes Appearance: Positive: Well-Appearing Skin: Positive: Warm Head/Face: Positive: Normal Head/Face Inspection Eyes: Positive: Normal ENT: Positive: Normal ENT inspection Neck: Positive: Supple Respiratory/Lung Sounds: Positive: Clear to Auscultation Cardiovascular: Positive: Normal Abdomen Description: Positive: Nontender Musculoskeletal: Positive: Normal Neurological: Positive: Normal Psychiatric: Positive: Normal AVPU Assessment: Alert - Corry Coma Scale Best Eye Response: 4 - Spontaneous Best Motor Response: 6 - Obeys Commands Best Verbal Response: 5 - Oriented Coma Scale Total: 15 Procedures - Sedation Patient Received Moderate/Deep Sedation with Procedure: No Diagnostics - Vital Signs Vital Signs Temp Pulse Resp BP Pulse Ox 04/28/19 13:40 99.4 F 87 19 145/90 92 - Laboratory Result Diagrams: 04/28/19 14:54 04/28/19 14:54 Lab Statement: Any lab studies that have been ordered have been reviewed, and results considered in the medical decision making process. Course/Dx - Course Course Of Treatment: Patient complains of new onset bilateral pedal edema, left worse than right, SOB and left lateral chest pain when lying down at night 2.5 weeks. CP worse with inhalation. Less CP and less SOB during the day, but intermittent mild SOB during the day, even at rest. Denies trauma as source of left lateral chest pain. Denies fever, cough, sore throat, and/V/D, abdominal pain, change in urine, change in BM, rash. Medical history is CAD, COPD, DM, Crohn's. Positive smoker for 60 years. Has an inhaler at home that he received 1 month ago. 92% on room air. Vital signs otherwise within normal limits. Patient ambulated with pulse ox and O2 sats went down to 82%. BNP greater than 1300. Chest x-ray positive for pulmonary edema and possible right lobe infiltrate. Creatinine 1.4, slightly elevated from baseline. Initial troponin 0.03. Labs otherwise at patient baseline. EKG sinus rhythm, rate of 78 with normal P axis. Right bundle-branch block. Patient refuses admission. States he will come back tomorrow morning at 8 and is okay being admitted then. Have thouroughly explained to patient risk of heart failure, respiratory failure, infection and if he remains. Patient is adamant and is willing to sign out AMA. Patient given Lasix 40 mg IV, nitroglycerin 0.4 mg patch, started on doxycycline. - Diagnoses Provider Diagnoses: Congestive heart failure, Pneumonia, Elevated troponin, Hypoxia Discharge ED - Sign-Out/Discharge Documenting (check all that apply): Patient Departure - Discharge Plan Condition: Fair Disposition: AGAINST MEDICAL ADVICE Prescriptions: DOXYcycline CAP(*) [DOXYcycline 100MG CAP(*)] 100 mg PO BID 7 Days #14 cap Furosemide TAB* [Lasix TAB*] 40 mg PO DAILY 4 Days #4 tab Nitroglycerin 0.4 MG/HR PATCH* [Nitroglycerin 10 MG PATCH*] 1 patch TRANSDERM DAILY 1 Days #1 patch Referrals: Aletha Meza MD [Primary Care Provider] - Additional Instructions: Return to the ED tomorrow morning at 8 as discussed. In the meantime return to the ED for any new or worsening symptoms. - Billing Disposition and Condition Condition: FAIR Disposition: Against Medical Advice
[2019-04-28 15:08] LABS: Hematocrit 35 % (42-52); Hemoglobin 11.8 g/dL (14.0-18.0); Mean Corpuscular HGB Conc 34 g/dL (31-36); Mean Corpuscular Hemoglobin 31 pg (27-31); Mean Corpuscular Volume 91 fL (80-94); Mean Platelet Volume 11.4 fL (7.4-10.4); Platelet Count 207 10^3/uL (150-450); Red Blood Count 3.83 10^6 /uL (4.18-5.48); Red Cell Distribution Width 15 % (10-15); White Blood Count 5.9 10^3/uL (3.5-10.8)
[2019-04-28] MEDS ORDERED: Albuterol/Ipratropium NEB.SOL* Albuterol 2.5 MG/Ipratropium 0.5 MG 3 ML INH ONE (15:25)
[2019-04-28 15:27] LABS: ALT 22 U/L (7-52); AST 28 U/L (13-39); Albumin 2.9 g/dL (3.2-5.2); Alkaline Phosphatase 293 U/L (34-104); Anion Gap 6 mmol/L (2-11); BUN/Creatinine Ratio 7.1 (8-20); Blood Urea Nitrogen 10 mg/dL (6-24); C Reactive Protein < 1.00 mg/L (<8.01); CO2 Carbon Dioxide 31 mmol/L (22-32); Calcium 8.2 mg/dL (8.6-10.3); Chloride 98 mmol/L (101-111); EGFR African American 59.5 (>60); EGFR Non-African American 49.1 (>60); Glucose 110 mg/dL (70-100); Potassium 2.9 mmol/L (3.5-5.0); Sodium 135 mmol/L (135-145); Total Protein 5.9 g/dL (6.4-8.9)
[2019-04-28 15:31] LABS: Troponin I 0.03 ng/mL (<0.03)
[2019-04-28 15:43] LABS: ABS Basophils 0.1 10^3/ul (0-0.2); ABS Eosinophils 0.2 10^3/ul (0-0.6); ABS Lymphocytes 1.2 10^3/ul (1.0-4.8); ABS Monocytes 0.8 10^3/ul (0-0.8); ABS Neutrophils 3.7 10^3/ul (1.5-7.7); Eosinophil % 2.8 %; Lymphocyte % 19.9 %
[2019-04-28 16:06] LABS: TSH (Thyroid Stimulating Horm) 2.42 mcIU/mL (0.34-5.60)
[2019-04-28] MEDS ORDERED: Nitroglycerin 0.4 MG/HR PATCH* (10 MG) TRANSDERM ONE (17:23)
[2019-04-28] MEDS ORDERED: Furosemide IV* 10 MG/ML VIAL (40 MG) IV ONE (17:23)
[2019-04-28] MEDS ORDERED: DOXYcycline CAP(*) 100 MG PO ONE (17:25)
[2019-04-28 18:42] LABS: Troponin I 0.03 ng/mL (<0.03)
== END 2019-04-28 19:30 | disposition left against medical advice (07) ==
LOC: ED 13:38
DX: I50.9 Heart failure, unspecified (principal); J18.9 Pneumonia, unspecified organism; R79.89 Other specified abnormal findings of blood chemistry; R09.02 Hypoxemia; E10.9 Type 1 diabetes mellitus without complications; I25.10 Atherosclerotic heart disease of native coronary artery without angina pectoris; J44.9 Chronic obstructive pulmonary disease, unspecified; K21.9 Gastro-esophageal reflux disease without esophagitis; F17.210 Nicotine dependence, cigarettes, uncomplicated; Z88.1 Allergy status to other antibiotic agents; Z88.8 Allergy status to other drugs, medicaments and biological substances
CPT/HCPCS: 36415; 71046; 80053; 83690; 83880; 84443; 84484; 85025; 86140; 93005; 96374; 99282; A9270-GY; J1940

== ENCOUNTER 2019-04-29 11:36 | Emergency (ER) | payer MEDICARE, BC ==
[2019-04-29 11:59] VITALS: BP 108/62
== END 2019-04-29 12:48 | disposition left against medical advice (07) ==
LOC: ED 11:36
DX: Z53.21 Procedure and treatment not carried out due to patient leaving prior to being seen by health care provider (principal); I50.9 Heart failure, unspecified
CPT/HCPCS: 99281

== ENCOUNTER 2019-05-06 14:12 | Inpatient (IN) | payer MEDICARE, BC ==
--- OUTSIDE RECORDS SUMMARY | 2019-05-06 14:25 | XMS REPORT | Continuity of Care Document ---
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 Onset: 04/03/2012 Electrocardiogram abnormal Minal Youssef M.D. 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 Allergies, Adverse Reactions, Alerts Active Allergies Reaction Severity Comments Date Asacol 07/12/2016 Cipro 07/12/2016 Medications Active Medications SIG Qnty Indications Ordering Date Provider Atorvastatin Calcium take one tablet 90tabs I73.9 Marcelino Fuentes 07/12/2016 20mg by mouth at Alis Herrera Tablets bedtime Naproxen 1 tablet with Unknown 500mg Tablets food by mouth twice a day prn Nicotrol one cartridge Unknown 10mg Inhaler 6-16 times daily Humalog Kwikpen as directed Unknown 100Unit/ML Solution Pen-Inject Tresiba Flextouch as directed Unknown 100Unit/ML Solution Pen-Inject Vitamin D3 1 by mouth every Unknown 2000Unit day Capsules Digestive Advantage 1 po daily Unknown Capsules Tamsulosin HCL 1 by mouth every Unknown 0.4mg day Capsules Diphenhydramine HCL 2 po bid Unknown 25mg Tablets Immunizations Description No Information Available Vital Signs Date Vital Result Comment 07/12/2016 9:28am Height 68 inches 5'8" Weight 115.00 lb Heart Rate 78 /min BP Systolic 110 mmHg left arm, reg cuff BP Diastolic 68 mmHg left arm, reg cuff BP Systolic Sitting 112 mmHg right arm, reg cuff BP Diastolic Sitting 68 mmHg right arm, reg cuff BP Systolic Standing 110 mmHg right arm, reg cuff BP Diastolic Standing 68 mmHg right arm, reg cuff Respiratory Rate 16 /min BMI (Body Mass Index) 17.5 kg/m2 09/21/2014 3:08pm Height 66 inches 5'6" Weight 113.00 lb Heart Rate 82 /min BP Systolic 114 mmHg BP Diastolic 66 mmHg BMI (Body Mass Index) 18.2 kg/m2 Results Description No Information Available Procedures Date Code Description Status 09/18/2017 [id number] Diabetic Retinal Eye Exam Completed Medical Devices Description No Information Available Encounters Type Date Location Provider Dx Diagnosis Office Visit 04/04/2019 [facility] Marty Avila, R17 Unspecified 11:29a shannan Gonzáles M.D. jaundice Hospitalists Assessments Date Code Description Provider 04/04/2019 R17 Unspecified jaundice Marty Avila M.D. Plan of Treatment 07/12/2016 - Marcelino Herrera M.D.R94.31 Abnormal electrocardiogram [ECG] [EKG] F17.200 Nicotine dependence, unspecified, [id number] Peripheral vascular disease, unspecifiedNew Medication:Atorvastatin Calcium 20 mg - take one tablet by mouth at bedtimeFollow up:3 months Functional Status Description No Information Available Mental Status Description No Information Available Referrals Description No Information Available
--- OUTSIDE RECORDS SUMMARY | 2019-05-06 14:25 | XMS REPORT | Continuity of Care Document ---
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 [phone] Problems Active Problems Provider Date Type 2 diabetes mellitus Onset: 11/01/2005 Peptic reflux disease Onset: 11/01/2005 Liver function tests abnormal Javier Leslie MD Onset: 04/08/2019 Crohn's disease of small AND large intestines Javier Leslie MD Onset: Social History Type Date Description Comments Sex Unknown Tobacco Use Start: Unknown Light tobacco smoker (10 or fewer cigarettes/day) Smoking Status Reviewed: 04/08/19 Light tobacco smoker (10 or fewer cigarettes/day) Allergies, Adverse Reactions, Alerts Active Allergies Reaction Severity Comments Date Cipro 05/04/2009 Medications Active Medications SIG Qnty Indications Ordering Provider Date Naproxen take 1 tablet by 60tabs Aletha Molina M 09/01/2014 500mg Tablets mouth twice daily D as needed with food Reclast for infusion as 1units Aletha Molina M 03/19/2012 5mg/100ML directed q yr D Solution Vitamin D 1 po qwk x 4 wks 4caps Aletha Molina M 03/19/2012 (Ergocalciferol) D 41698Ksry Capsules Levemir Flexpen 8 Units bid Aletha Molina M 02/13/2012 D 100Unit/ML Solution Pen-Inject Humalog Sliding Scale tid Aletha Molina M 02/13/2012 100Unit/ML D Solution Cartridge Zyrtec Allergy Aletha Molina M 05/04/2009 10mg D Capsules Albuterol Sulfate HFA Inhale One To Two Unknown Puffs By Mouth 108(90Base) mcg/Act Every 4 Hours as Aerosol Needed For Dyspnea Tamsulosin HCL Amauri Ballard, 0.4mg MD Capsules Immunizations CPT Code Status Date Vaccine Lot # [id number] Given 06/14/2004 Influenza Virus [place], [place] [address] Given 09/29/2003 Pneumovax 13960 Given 07/22/2003 Tetanus & Diptheria Toxoids Vaccine For Intracmuscular Use 79706 Given 04/06/2003 Influenza Virus Vaccine, Split Virus, Im Vital Signs Date Vital Result Comment 04/08/2019 2:29pm Height 65 inches 5'5" Weight 120.00 lb BP Systolic 140 mmHg BP Diastolic 76 mmHg Heart Rate 87 /min BMI (Body Mass Index) 20.0 kg/m2 12/23/2014 12:39pm Height 66 inches 5'6" Weight 110.00 lb BP Systolic 102 mmHg BP Diastolic 60 mmHg Heart Rate 72 /min BMI (Body Mass Index) 17.8 kg/m2 Results Test Acquired Date Facility Test Result H/L Range Note Inr/Protime 05/02/2019 [facility] Inr 1.09 Normal 0.82-1.09 1 Comp Metabolic Panel 05/02/2019 [facility] Albumin 2.8 g/dL Low 3.2-5.2 Sodium 135 mmol/L Normal 135-145 Potassium 3.2 mmol/L Low 3.5-5.0 Chloride 93 mmol/L Low 101-111 Co2 Carbon Dioxide 35 mmol/L High 22-32 Anion Gap 7 mmol/L Normal 2-11 Calcium 8.3 mg/dL Low 8.6-10.3 Total Bilirubin 3.50 mg/dL High 0.2-1.0 Total Protein 5.5 g/dL Low 6.4-8.9 Globulin 2.7 g/dL Normal 2-4 Albumin/Globulin Ratio 1.0 Normal 1-3 Glucose 306 mg/dL High 70-100 Blood Urea Nitrogen 13 mg/dL Normal 6-24 Creatinine 1.34 mg/dL High 0.67-1.17 BUN/Creatinine Ratio 9.7 Normal 8-20 Alkaline Phosphatase 252 U/L High 34-104 Alt 24 U/L Normal 7-52 Ast 34 U/L Normal 13-39 Egfr Non- 52.1 >60 Egfr 63.1 >60 2 Inr/Protime 04/17/2019 [facility] Inr 1.14 High 0.82-1.09 3 Comp Metabolic Panel 04/17/2019 [facility] Sodium 135 mmol/L Normal 135-145 Potassium 3.3 mmol/L Low 3.5-5.0 Chloride 101 mmol/L Normal 101-111 Co2 Carbon Dioxide 27 mmol/L Normal 22-32 Anion Gap 7 mmol/L Normal 2-11 Glucose 304 mg/dL High 70-100 Blood Urea Nitrogen 10 mg/dL Normal 6-24 Creatinine 1.19 mg/dL High 0.67-1.17 BUN/Creatinine Ratio 8.4 Normal 8-20 Calcium 7.6 mg/dL Low 8.6-10.3 Total Protein 5.2 g/dL Low 6.4-8.9 Albumin 2.7 g/dL Low 3.2-5.2 Globulin 2.5 g/dL Normal 2-4 Albumin/Globulin Ratio 1.1 Normal 1-3 Total Bilirubin 6.00 mg/dL High 0.2-1.0 Alkaline Phosphatase 416 U/L High 34-104 Alt 27 U/L Normal 7-52 Ast 39 U/L Normal 13-39 Egfr Non- 59.8 >60 Egfr 72.3 >60 4 Inr/Protime 04/11/2019 [facility] Inr 1.79 High 0.82-1.09 5 Comp Metabolic Panel 04/11/2019 [facility] Sodium 134 mmol/L Low 135-145 Potassium 3.3 mmol/L Low 3.5-5.0 Chloride 99 mmol/L Low 101-111 Co2 Carbon Dioxide 28 mmol/L Normal 22-32 Anion Gap 7 mmol/L Normal 2-11 Calcium 7.9 mg/dL Low 8.6-10.3 Albumin 2.8 g/dL Low 3.2-5.2 Total Bilirubin 11.50 mg/dL High 0.2-1.0 Glucose 65 mg/dL Low 70-100 Blood Urea Nitrogen 10 mg/dL Normal 6-24 Creatinine 1.22 mg/dL High 0.67-1.17 BUN/Creatinine Ratio 8.2 Normal 8-20 Alkaline Phosphatase 520 U/L High 34-104 Alt 47 U/L Normal 7-52 Ast 66 U/L High 13-39 Egfr Non- 58.1 >60 Egfr 70.3 >60 6 Total Protein 5.3 g/dL Low 6.4-8.9 Globulin 2.5 g/dL Normal 2-4 Albumin/Globulin Ratio 1.1 Normal 1-3 CBC Auto Diff 04/11/2019 [facility] White Blood Count 9.4 10^3/uL Normal 3.5- 10.8 Red Blood Count 3.33 10^6/uL Low 4.18-5.48 Hemoglobin 10.2 g/dL Low 14.0-18.0 Hematocrit 30 % Low 42-52 Mean Corpuscular Volume 90 fL Normal 80-94 Mean Corpuscular Hemoglobin 31 pg Normal 27-31 Mean Corpuscular HGB Conc 34 g/dL Normal 31-36 Red Cell Distribution Width 16 % High 10-15 Platelet Count 270 10^3/uL Normal 150-450 Mean Platelet Volume 13.8 fL High 7.4-10.4 Manual Differential 04/11/2019 [facility] Neutrophil % 73.0 % Lymphocytes % 18.0 % Monocytes % 7.0 % Eosinophils % 2.0 % Abs Neutrophils 6.9 10^3/uL Normal 1.5-7.7 Abs Lymphocytes 1.7 10^3/uL Normal 1.0-4.8 Abs Monocytes 0.7 10^3/uL Normal 0-0.8 Abs Eosinophils 0.2 10^3/uL Normal 0-0.6 Hypochromasia 2+ Target Cells 1+ Laboratory test finding 04/11/2019 [facility] Pathologist Review (SEE NOTE) 7 Iron & Iron Binding 04/11/2019 [facility] Iron 71 g/dL Normal 50-212 Capacity Unsaturated Iron Binding < 182 g/dL Total Iron Binding Capacity 197 g/dL Low 250-450 Transferrin 141 mg/dL Low 203-362 % Iron Saturation 36 % Normal 15-55 Laboratory test 04/11/2019 [facility] Immunoglobulin A (Iga) 444 mg/dL Abnormal 61 - 356 8 finding Anti Nuclear Antibody 0.9 U 9 Tissue Transglutamianse Iga AB 1.3 U/mL 10 Mitochondrial AB AMA M2 Igg <0.1 U 11 Inr/Protime 04/07/2019 [facility] Inr 1.43 High 0.82-1.09 12 Liver Function Panel 04/07/2019 [facility] Direct Bilirubin 8.90 mg/dL High 0.03 -0.18 Albumin 2.9 g/dL Low 3.2-5.2 Total Protein 5.2 g/dL Low 6.4-8.9 Globulin 2.3 g/dL Normal 2-4 Albumin/Globulin Ratio 1.3 Normal 1-3 Alkaline Phosphatase 623 U/L High 34-104 Alt 60 U/L High 7-52 Ast TNP U/L 13-39 13 Total Bilirubin 15.80 mg/dL Critical high 0.2-1.0 14 Indirect Bilirubin 6.9 mg/dL High 0.3-1.0 1 Standard intensity warfarin therapeutic range: 2.0-3.0 High intensity warfarin therapeutic range: 2.5-3.5 2 Because ethnic data is not always readily available, this report includes an eGFR for both -Americans and non- Americans. The National Kidney Disease Education Program (NKDEP) does not endorse the use of the MDRD equation for patients that are not between the ages of 18 and 70, are , have extremes of body size, muscle mass, or nutritional status, or are non- or non-. According to the National Kidney Foundation, irrespective of diagnosis, the stage of the disease is based on the level of kidney function: Stage Description GFR(mL/min/1.73 m(2)) 1 Kidney damage with normal or decreased GFR 90 2 Kidney damage with mild decrease in GFR 60-89 3 Moderate decrease in GFR 30-59 4 Severe decrease in GFR 15-29 5 Kidney failure <15 (or dialysis) 3 Standard intensity warfarin therapeutic range: 2.0-3.0 High intensity warfarin therapeutic range: 2.5-3.5 4 Because ethnic data is not always readily available, this report includes an eGFR for both -Americans and non- Americans. The National Kidney Disease Education Program (NKDEP) does not endorse the use of the MDRD equation for patients that are not between the ages of 18 and 70, are , have extremes of body size, muscle mass, or nutritional status, or are non- or non-. According to the National Kidney Foundation, irrespective of diagnosis, the stage of the disease is based on the level of kidney function: Stage Description GFR(mL/min/1.73 m(2)) 1 Kidney damage with normal or decreased GFR 90 2 Kidney damage with mild decrease in GFR 60-89 3 Moderate decrease in GFR 30-59 4 Severe decrease in GFR 15-29 5 Kidney failure <15 (or dialysis) 5 Standard intensity warfarin therapeutic range: 2.0-3.0 High intensity warfarin therapeutic range: 2.5-3.5 6 Because ethnic data is not always readily available, this report includes an eGFR for both -Americans and non- Americans. The National Kidney Disease Education Program (NKDEP) does not endorse the use of the MDRD equation for patients that are not between the ages of 18 and 70, are , have extremes of body size, muscle mass, or nutritional status, or are non- or non-. According to the National Kidney Foundation, irrespective of diagnosis, the stage of the disease is based on the level of kidney function: Stage Description GFR(mL/min/1.73 m(2)) 1 Kidney damage with normal or decreased GFR 90 2 Kidney damage with mild decrease in GFR 60-89 3 Moderate decrease in GFR 30-59 4 Severe decrease in GFR 15-29 5 Kidney failure <15 (or dialysis) 7 Normocytic anemia. Reviewed by Enedelia Magaña MD 8 Test Performed by: [place] [address] Printer Slotter Helper: Ousmane Davis M.D. Ph.D.; CLIA# [id number] 9 REFERENCE VALUE <=1.0 (Negative) Test Performed by: [place] [address] Printer Slotter Helper: Ousmane Davis M.D. Ph.D.; CLIA# [id number] 10 REFERENCE VALUE <4.0 (Negative) Test Performed by: [place] [address] Printer Slotter Helper: Ousmane Davis M.D. Ph.D.; CLIA# [id number] 11 REFERENCE VALUE <0.1 (Negative) Test Performed by: [facility] [address] [place] [address] Printer Slotter Helper: Ousmane Davis M.D. Ph.D.; CLIA# [id number] 12 Standard intensity warfarin therapeutic range: 2.0-3.0 High intensity warfarin therapeutic range: 2.5-3.5 13 Unable to report test result due to hemolysis. 14 Critical Result TBIL:15.80 Called to KOBE TANG at: 15:14:15 by:[id number] Read back by:KOBE TANG Procedures Description No Information Available Medical Devices Description No Information Available Encounters Description No Information Available Assessments Date Code Description Provider 04/08/2019 R94.5 Abnormal results of liver function studies Javier Leslie MD Plan of Treatment 04/08/2019 - Javier Leslie, MDR94.5 Abnormal results of liver function studiesNew Labs:Yarely Titer, Ordered: 04/08/19Anti Mitochondrial Antibody, Ordered : 04/08/19CMP(!), Ordered: 04/08/19Celiac 2!, Ordered: 04/08/19Inr(!), Ordered: 04/08/19Iron/Uibc/Tibc/%Sat, Ordered: 04/08/19CBC W/Auto Differential(!), Ordered: 04/08/19Comments:I had a very long discussion with the patient regarding his symptoms. We discussed all potential causes for his increased liver function test. We discussed alcohol autoimmune diseases he is Crohn's and potentially primary sclerosing cholangitis, he does not drink any alcohol. We discussed gallstones. I do wonder if his increased liver function tests are related to his antibiotics namely his amoxicillin. I would like to repeat his LFTs and check additional blood work. I will be in touch with him very soon he will call me with any questions concerns or changes Functional Status Description No Information Available Mental Status Description No Information Available Referrals Description No Information Available
--- OUTSIDE RECORDS SUMMARY | 2019-05-06 14:25 | XMS REPORT | Continuity of Care Document ---
:1945 External Reference #:[id number] Author Name Javier Leslie MD Address [address] [place] [id number] Care Team Providers Name Role Phone Aletha Molina MD Care Team Information Zinc Plater [phone] Problems Active Problems Provider Date Type 2 [...] 4caps Aletha Molina M 03/19/2012 (Ergocalciferol) D 96671Mnsg Capsules Levemir Flexpen 8 Units bid Aletha [...] CPT Code Status Date Vaccine Lot # [id number] Given 06/14/2004 Influenza [place], [place] [address] Given 09/29/2003 Pneumovax 38335 Given 07/22/2003 Tetanus & Diptheria Toxoids Vaccine For Intracmuscular Use 39434 Given 04/06/2003 Influenza Virus Vaccine, Split Virus, [...] Test Result H/L Range Note Inr/Protime 05/02/2019 [facility] Inr 1.09 Normal 0.82-1.09 1 Comp Metabolic Panel 05/02/2019 [facility] Albumin 2.8 g/dL Low 3.2-5.2 Sodium 135 [...] 1.1 Normal 1-3 CBC Auto Diff 04/11/2019 [facility] White Blood Count 9.4 10^3/uL Normal 3.5- [...] 13.8 fL High 7.4-10.4 Manual Differential 04/11/2019 [facility] Neutrophil % 73.0 % Lymphocytes % 18.0 % Monocytes % 7.0 % Eosinophils % 2.0 % Abs Neutrophils 6.9 10^3/uL Normal 1.5-7.7 Abs Lymphocytes 1.7 10^3/uL Normal 1.0-4.8 Abs Monocytes 0.7 10^3/uL Normal 0-0.8 Abs Eosinophils 0.2 10^3/uL Normal 0-0.6 Hypochromasia 2+ Target Cells 1+ Laboratory test finding 04/11/2019 [facility] Pathologist Review (SEE NOTE) 7 Iron & Iron Binding 04/11/2019 [facility] Iron 71 g/dL Normal 50-212 Capacity Unsaturated Iron Binding < 182 g/dL Total Iron Binding Capacity 197 g/dL Low 250-450 Transferrin 141 mg/dL Low 203-362 % Iron Saturation 36 % Normal 15-55 Laboratory test 04/11/2019 [facility] Immunoglobulin A (Iga) 444 mg/dL Abnormal 61 - 356 8 finding Anti Nuclear Antibody 0.9 U 9 Tissue Transglutamianse Iga AB 1.3 U/mL 10 Mitochondrial AB AMA M2 Igg <0.1 U 11 Inr/Protime 04/07/2019 [facility] Inr 1.43 High 0.82-1.09 12 Liver Function Panel 04/07/2019 [facility] Direct Bilirubin 8.90 mg/dL High 0.03 -0.18 [...] Enedelia Magaña MD 8 Test Performed by: [place] [address] Medical Technologist Hematology: Ousmane Davis M.D. Ph.D.; CLIA# [id number] 9 REFERENCE VALUE <=1.0 (Negative) Test Performed by: [place] [address] Medical Technologist Hematology: Ousmane Davis M.D. Ph.D.; CLIA# [id number] 10 REFERENCE VALUE <4.0 (Negative) Test Performed by: [place] [address] Medical Technologist Hematology: Ousmane Davis M.D. Ph.D.; CLIA# [id number] 11 REFERENCE VALUE <0.1 (Negative) Test Performed by: [facility] [address] [place] [address] Medical Technologist Hematology: Ousmane Davis M.D. Ph.D.; CLIA# [id number] 12 Standard intensity warfarin therapeutic range: 2.0-3.0 High intensity warfarin therapeutic range: 2.5-3.5 13 Unable to report test result due to hemolysis. 14 Critical Result TBIL:15.80 Called to KOBE TANG at: 15:14:15 by:[id number] Read back by:KOBE TANG Procedures Description No [...]
--- NOTE | 2019-05-06 14:33 | ED ---
HPI Cardiac - HPI Summary HPI Summary: The patient is a 74 y/o M arriving by ambulance to [facility] with a chief complaint of hypotension this afternoon. He reports that he was at Dr. Bower office because he has been suffering from PNA and edema, for which he was placed on antibiotics and Lasix for, respectively. He finished the course of antibiotics this morning, and he took his Lasix this morning as well. While at the office, he had hypotension. He endorses dizziness and fatigue, but he denies any CP or SOB. He states that he still has trace edema in the left leg, but the edema in the right has seemed to have subsided with the Lasix for the last 10 days. He notes that he has been using his inhaler as needed for difficulty breathing which has helped. He is not currently in any pain. PMHx: diabetes, CAD, COPD, Chrohns disease, GERD. FHx: . Current every day smoker, rare EtOH, no substance use. Medications reviewed. Allergies noted. - History of Current Complaint Stated Complaint: LOW BLOOD PRESSURE Time Seen by Provider: 05/06/19 14:23 Hx Obtained From: Patient Onset/Duration: Started Minutes Ago, Resolved Timing: Lasting Minutes Initial Severity: Moderate Current Severity: None Pain Intensity: 0 Pain Scale Used: 0-10 Numeric Aggravating Factor(s): Nothing Alleviating Factor(s): Spontaneous Resolution Associated Signs and Symptoms: Positive: Dizziness, Other: - fatigue. Negative : Chest Pain, Shortness of Breath - Allergy/Home Medications Allergies/Adverse Reactions: Allergies Allergy/AdvReac Type Severity Reaction Status Date / Time ciprofloxacin Allergy liver Verified 05/06/19 14:37 problems mesalamine [From Asacol] Allergy GI Upset Verified 05/06/19 14:37 prednisone AdvReac See Comment Verified 05/06/19 14:37 Home Medications: Home Medications Bacillus Coagulans [Digestive Advantage Probi] 1 chw PO DAILY 05/06/19 [History Confirmed 05/06/19] Nicotine [Nicotrol NS 10 MG/ML NASAL SPRAY] 6 - 16 nasal.spr NASAL .SEE DIRECTIONS 05/06/19 [History Confirmed 05/06/19] PMH/Surg Hx/FS Hx/Imm Hx Endocrine/Hematology History: Reports: Hx Diabetes - type 1 Denies: Hx Thyroid Disease Cardiovascular History: Reports: Hx Coronary Artery Disease Denies: Hx Hypertension, Hx Pacemaker/ICD Comment Only: Other Cardiovascular Problems/Disorders - PT DENIES ALL HX OF HEART OR LUNGS Respiratory History: Reports: Hx Chronic Obstructive Pulmonary Disease (COPD) Denies: Hx Asthma GI History: Reports: Hx Crohn's Disease, Hx Gastroesophageal Reflux Disease Denies: Hx Ulcer History: Reports: Other Problems/Disorders - ENLARGE PROSTATE Musculoskeletal History: Reports: Other Musculoskeletal History Sensory History: Reports: Hx Cataracts - BILATERAL, Hx Contacts or Glasses Denies: Hx Deafness, Hx Hearing Aid Opthamlomology History: Reports: Hx Cataracts - BILATERAL, Hx Contacts or Glasses Neurological History: Denies: Hx Dementia Psychiatric History: Denies: Hx Panic Disorder - Surgical History Surgical History: Yes Surgery Procedure, Year, and Place: Back surgery l4/l5 fusion, Right wrist broken/repaired, Tonsillectomy Hx Anesthesia Reactions: No Infectious Disease History: Denies: Hx Clostridium Difficile, Hx Hepatitis, Hx Human Immunodeficiency Virus (HIV), Hx of Known/Suspected MRSA, Hx Shingles, Hx Tuberculosis, Hx Known/ Suspected VRE, Hx Known/Suspected VRSA, History Other Infectious Disease, Traveled Outside the [place] in Last 30 Days - Family History Known Family History: Positive: Other - mother of lupus; father age 91 of old age. - Social History Alcohol Use: Rare Alcohol Amount: 3 beers a month Hx Substance Use: No Substance Use Type: Reports: None Hx Tobacco Use: Yes Smoking Status (MU): Current Every Day Smoker Type: Cigarettes Amount Used/How Often: 1/2 ppd Length of Time of Smoking/Using Tobacco: since age [age] Have You Smoked in the Last Year: Yes Review of Systems Positive: Fatigue Positive: Other - hypotension. Negative: Chest Pain Negative: Shortness Of Breath Neurological: Other - dizziness All Other Systems Reviewed And Are Negative: Yes Physical Exam - Summary Physical Exam Summary: Constitutional: Elderly, Well-developed, Thin, Alert. (-) Distressed Skin: Warm, Dry HENT: Normocephalic; Atraumatic Eyes: Conjunctiva normal Neck: Musculoskeletal ROM normal neck. (-) JVD, (-) Stridor, (-) Nuchal rigidity Cardio: Rhythm regular, rate normal, Heart sounds normal; Intact distal pulses; Radial pulses are 2+ and symmetric. (-) Murmur Pulmonary/Chest wall: Effort normal. (-) Respiratory distress, (-) Wheezes, (-) Rales Abd: Soft, (-) tenderness, (-) Distension, (-) Guarding, (-) Rebound Musculoskeletal: (-) Edema Lymph: (-) Cervical adenopathy Neuro: Alert, Oriented x3 Psych: Mood and affect Normal Triage Information Reviewed: Yes Vital Signs Reviewed: Yes Procedures - Sedation Patient Received Moderate/Deep Sedation with Procedure: No Diagnostics - Laboratory Result Diagrams: 05/06/19 14:48 05/06/19 19:05 Lab Statement: Any lab studies that have been ordered have been reviewed, and results considered in the medical decision making process. - Radiology CXR Radiology Interpretation Completed By: Radiologist Summary of Radiographic Findings: Impression: 1. The constellation of findings is most suggestive of interstitial pulmonary edema superimposed on chronic obstructive pulmonary disease. Probable mild interval decrease in pleural effusions compared with the April 28, 2019 exam. ED physician has reviewed this report. - EKG 1540 Cardiac Rate: NL - 66 BPM EKG Rhythm: Sinus Rhythm Summary of EKG Findings: An EKG at 1540 reveals sinus rhythm at 66 BPM. U-waves in V4 and V5. QTc is 545. T-wave inversions in V1, V2, and V3. No STEMI. ED physician has reviewed and interpreted this EKG. 2014 Cardiac Rate: NL - 64 BPM EKG Rhythm: Sinus Rhythm Summary of EKG Findings: An EKG at 2013 reveals normal sinus rhythm at 64 BPM. Prolonged QTc. U-waves in V4 and V5. QTc is 545. T-wave inversions in V1, V2, and V3. ED physician has reviewed and interpreted this EKG. Re-Evaluation - Re-Evaluation First Eval Re-Evaluation Time: 20:00 Change: Unchanged Comment: Patient continues to be orthostatic despite IV fluids. QTC remains prolonged. Admit to medicine Disposition - Course Course Of Treatment: 74 y/o male w hx CHF, elevated bili followed by GI p/w fatigue lightheadedness and hypotension. - Suspect secondary to over diuresis, orthostatics positive. Potassium 3, repleted. Mg also repleted. Given 500 of normal saline 2. EKG w prolonged qTC and u waves. Chest x-ray shows interstitial edema. Pending repeat BMP will consider admission to the hospital for dehydration. Troponin 0.04 suspect secondary to hypotension. - Diagnoses Provider Diagnoses: Orthostatic hypotension, Dehydration - Physician Notifications Discussed Care Of Patient With: Fani Worrell - hospitalist Time Discussed With Above Provider: 16:00 Instructed by Provider To: Other - I spoke with Dr. Worrell concerning the patient' s case. She recommends repleting magnesium, potassium, and fluids, and then repeat vitals and labs to see if there is improvement. If he improves, he can be discharged home. I discussed the patients case with Dr. Hartley, who accepts the patient for admission at 2030. Discharge ED - Sign-Out/Discharge Documenting (check all that apply): Patient Departure - Patient accepted for admission by Dr. Hartley. - Discharge Plan Condition: Stable Disposition: ADMITTED TO [facility] Referrals: Aletha Meza MD [Primary Care Provider] - - Billing Disposition and Condition Condition: STABLE Disposition: Admitted to [facility] - Attestation Statements Document Initiated by Mayra: Yes Documenting Scribe: Felicita Avery Provider For Whom Mayra is Documenting (Include Credential): Dr. Cinthya Mayo MD Scribe Attestation: IFelicita, scribed for Dr. Cinthya Mayo MD on 05/06/19 at 2201. Scribe Documentation Reviewed: Yes Provider Attestation: The documentation as recorded by the Felicita carter accurately reflects the service I personally performed and the decisions made by me, Dr. Cinthya Mayo MD Status of Scribalisha Document: Viewed
[2019-05-06 14:58] LABS: Hematocrit 36 % (42-52); Hemoglobin 12.2 g/dL (14.0-18.0); Mean Corpuscular HGB Conc 34 g/dL (31-36); Mean Corpuscular Hemoglobin 31 pg (27-31); Mean Corpuscular Volume 91 fL (80-94); Mean Platelet Volume 11.6 fL (7.4-10.4); Platelet Count 169 10^3/uL (150-450); Red Blood Count 3.94 10^6 /uL (4.18-5.48); Red Cell Distribution Width 14 % (10-15); White Blood Count 5.5 10^3/uL (3.5-10.8)
[2019-05-06 14:59] LABS: ABS Basophils 0.1 10^3/ul (0-0.2); ABS Eosinophils 0.2 10^3/ul (0-0.6); ABS Lymphocytes 1.1 10^3/ul (1.0-4.8); ABS Monocytes 0.6 10^3/ul (0-0.8); ABS Neutrophils 3.4 10^3/ul (1.5-7.7); Eosinophil % 4.3 %; Lymphocyte % 20.4 %; Nucleated Red Blood Cells % 0.1
[2019-05-06 15:33] LABS: ALT 22 U/L (7-52); AST 33 U/L (13-39); Albumin/Globulin Ratio 1.1 (1-3); Alkaline Phosphatase 244 U/L (34-104); Anion Gap 5 mmol/L (2-11); Blood Urea Nitrogen 13 mg/dL (6-24); CO2 Carbon Dioxide 36 mmol/L (22-32); Calcium 8.7 mg/dL (8.6-10.3); Chloride 92 mmol/L (101-111); Globulin 2.8 g/dL (2-4); Glucose 171 mg/dL (70-100); Sodium 133 mmol/L (135-145); Total Protein 5.8 g/dL (6.4-8.9)
[2019-05-06] MEDS ORDERED: Potassium Chlor TAB* 20 MEQ TAB.ER PO ONE (15:36)
[2019-05-06] MEDS ORDERED: NS 0.9% 1000 ML** 1,000 ML IV.FLUID IV ONE (15:41)
[2019-05-06 15:55] LABS: Magnesium 1.3 mg/dL (1.9-2.7)
[2019-05-06] MEDS ORDERED: Magnesium Sulfate IV* 3 GM in NS 0.9% 100 ML* 100 ML IVPB ONE (15:57)
[2019-05-06] MEDS ORDERED: NS 0.9% 500 ML* 500 ML IV SCH ×2 (16:00→22:00)
[2019-05-06] MEDS ORDERED: Potassium Chloride* LIQUID 20 MEQ/15 ML UDC PO ONE (16:00)
[2019-05-06] MEDS ORDERED: NS 0.9% 1000 ML** 1,000 ML IV SCH (17:00)
[2019-05-06 17:37] LABS: BUN/Creatinine Ratio 11.6 (8-20); EGFR African American 77.5 (>60); EGFR Non-African American 64.1 (>60)
[2019-05-06] MEDS: KCL 20 MEQ/100 ML IVPREMIX* 20 MEQ/100 ML BAG IV SCH ×2 (18:58→22:27)
[2019-05-06 19:31] LABS: ALT 21 U/L (7-52); AST 30 U/L (13-39); Albumin 2.8 g/dL (3.2-5.2); Albumin/Globulin Ratio 0.9 (1-3); Alkaline Phosphatase 234 U/L (34-104); Anion Gap 7 mmol/L (2-11); BUN/Creatinine Ratio 11.1 (8-20); Blood Urea Nitrogen 12 mg/dL (6-24); CO2 Carbon Dioxide 32 mmol/L (22-32); Calcium 8.1 mg/dL (8.6-10.3); Chloride 94 mmol/L (101-111); EGFR African American 80.9 (>60); EGFR Non-African American 66.8 (>60); Glucose 310 mg/dL (70-100); Magnesium 2.5 mg/dL (1.9-2.7); Potassium 3.4 mmol/L (3.5-5.0); Sodium 133 mmol/L (135-145); Total Protein 5.8 g/dL (6.4-8.9)
[2019-05-06 19:36] LABS: Troponin I 0.04 ng/mL (<0.03)
[2019-05-06 22:02] LABS: Troponin I 0.04 ng/mL (<0.03)
[2019-05-06 22:33] LABS: Troponin I 0.04 ng/mL (<0.03)
[2019-05-07] MEDS: NS 0.9% 1000 ML** 1,000 ML IV SCH ×2 (00:50→07:51)
--- NOTE | 2019-05-07 02:40 | HP ---
History of Present Illness - History of Present Illness Reason for Visit: hypotension History of Present Illness: 74 yo male with hx of CHF presenting from cardiology's office with hypotension. He just recovered from a pneumonia and during that time was taking extra dose of lasix for his peripheral edema. Pt was prompted to come to the ED when he was found to be hypotensive and orthostatic. Other than postural dizziness, he had no other symptoms. He was given 1L bolus in the ED and had his electrolytes replaced. He was still orthostatic after replacement. - Past Medical History Cardiac: CHF, HTN - Past Surgical History Past Surgical History: Other - back surgery - Past Family History Family History: CAD, CVA, DM - Past Social History Smoke: <1 pack per day, No Alcohol: None Drugs: None Review of Systems - Measurements Intake and Output: Intake and Output Last 24 Hours 05/04/19 05/05/19 05/06/19 05/07/19 06:59 06:59 06:59 06:59 Intake Total 1100 Balance 1100 Weight 105 lb 6.4 oz Intake: IV Fluids 1100 - Review of Systems Constitutional Symptoms: Negative: Weight Gain, Weight Loss, Weakness, Fatigue, Fever, Night Sweats, Unexplained Falls, Other Dermatology: Negative: Normal, Rash, Skin Lesions, Cancer, Skin Lumps, Other HEENT: Negative: Normal, Change in Hearing, Vertigo, Dental Problems, Tinnitus, Sinus Problem, Other Eyes: Negative: Normal, Change in Vision, Double Vision, Eye Pain, Glaucoma, Cataract, Contacts or Glasses, Other Thyroid: Negative: Normal, Goiter, Thyroid Nodule, Cold Intolerance, Heat Intolerance , Sweatiness, Tremor, Frequent Defecation, Constipation, Palpitations, Primary Hypothyroidism, Primary Hyperthyroidism, Weight Loss, Weight Gain, Change in Skin/Hair, Change in Menstruation, Radiation Exposure, Other Pulmonary: Negative: Normal, Cough, Sputum, Hemoptysis, Wheezing, Respiratory Distress, Shortness of Breath, COPD, Asthma, Exercise Intolerance, Home Oxygen, Other Cardiology: Negative: Normal, Chest Pain, Shortness of Breath, Palpitations, Swelling of Ankles, Peripheral Vascular Dis, Edema, Faintness, Syncope, Claudication, Proximal NocturnalDyspnea, Orthopnoea, Other Gastroenterology: Negative: Normal, Abdominal Pain, Nausea, Vomiting, Anorexia, Indigestion, Difficulty Swallowing, Heartburn, Constipation, Diarrhea, Blood in Stools, Change in Bowel Habits, Haematemesis, Melena, Other Genital - Urinary: Negative: Normal, Dysuria, Hematuria, Polyuria, Nocturia, Other Musculoskeletal: Negative: Joint Pain, Joint Stiffness, Arthritis, Osteoporosis, Low Back Pain , Sciatica, Joint Deformities, Kyphoscoliosis, Other Endocrinology: Negative: Normal, Thyroid Problems, Adrenal Problems, Gonadal Problems, Family Hx Endocrine Disorders, Obesity, Diabetes Mellitus, Hyperglycemia, Hx Hypoglycemia, Diabetic Foot Ulcers, Calluses, Hirsutism, Menstrual Abnormalities , Polydipsia, Polyuria, Gonadal Problems, Gynecomastia, Pituitary disease, Other Hematologic/Lymphatic: Negative: Anemia, Easy Bruising, Hx Leukemia, Hx Lymphoma, Use of Anticoagulant, Use of Antiplatelet Drugs, Other Neurology: Positive: Dizziness Negative: Normal, Headache, Migraines, Change in Vision, Diplopia, Change in Balancing, Change in Coordination, Change in Memory, Change in Speech, Change in Sphincter Function, Change in Walking, Numbness\Paresthesiae, Unexplained Weakness, Hx of Stroke\TIA, Hx of Seizures, Other Psychiatry: Negative: Normal, Depression, Anxiety, Depressed Mood, Anhedonia, Sexual Dysfunction, Weight Change, Guilt Feelings, Tearfulness, Unusual Fatigue, Unusual Anxiety, Suicidal Ideation, Hypomania, Eating Disorders, Other Allergic/Immunologic: Negative: Hx Anaphylaxis, Hx Angioedema, Hx Environmental, Hx Seasonal, Asthma, Hx HIV, Immunocompromise, Swollen Glands LymphNodes, Other Objective Active Medications: Sodium Chloride (Ns 0.9% 1000 Ml) 1,000 mls @ 150 mls/hr IV .PER [facility] Last Admin: 05/07/19 00:50 Dose: 150 mls/hr Vital Signs - 8 hr 05/06/19 05/06/19 05/06/19 19:00 19:18 19:54 Temperature Pulse Rate 74 80 69 Respiratory 16 Rate Blood Pressure 170/83 168/88 (mmHg) O2 Sat by Pulse 85 97 98 Oximetry 05/06/19 05/06/19 05/06/19 19:56 19:57 20:00 Temperature Pulse Rate 73 75 67 Respiratory 32 17 11 Rate Blood Pressure 123/65 105/64 (mmHg) O2 Sat by Pulse 98 98 98 Oximetry 05/06/19 05/06/19 05/06/19 20:03 20:04 20:32 Temperature Pulse Rate 70 72 64 Respiratory 26 19 Rate Blood Pressure 165/102 105/64 162/83 (mmHg) O2 Sat by Pulse 96 97 Oximetry 05/06/19 05/06/19 05/06/19 21:00 21:47 22:00 Temperature Pulse Rate 72 68 67 Respiratory 14 14 Rate Blood Pressure (mmHg) O2 Sat by Pulse 94 97 97 Oximetry 05/06/19 05/06/19 05/06/19 22:03 22:33 22:35 Temperature 97.5 F Pulse Rate 70 63 73 Respiratory 17 12 18 Rate Blood Pressure 156/85 164/85 111/57 (mmHg) O2 Sat by Pulse 97 97 96 Oximetry 05/06/19 05/06/19 05/06/19 23:00 23:03 23:18 Temperature 97.2 F Pulse Rate 69 75 72 Respiratory 17 17 16 Rate Blood Pressure 169/90 169/90 (mmHg) O2 Sat by Pulse 96 97 96 Oximetry Oxygen Devices in Use Now: None Eyes: No Scleral Icterus, PERRLA Ears/Nose/Mouth/Throat: NL Teeth, Lips, Gums, - - dry mucous membrane Neck: NL Appearance and Movements; NL JVP, Trachea Midline Respiratory: Symmetrical Chest Expansion and Respiratory Effort, Clear to Auscultation, Clear to Percussion Cardiovascular: NL Sounds; No Murmurs; No JVD, No Edema Abdominal: NL Sounds; No Tenderness; No Distention Lymphatic: No Cervical Adenopathy Extremities: No Edema, No Clubbing, Cyanosis Skin: No Rash or Ulcers, No Nodules or Sclerosis Neurological: Alert and Oriented x 3, NL Muscle Strength and Tone Result Diagrams: 05/06/19 14:48 05/06/19 19:05 Assess/Plan/Problems-Billing Assessment: - Patient Problems (1) Orthostatic dizziness Current Visit: Yes Status: Acute Code(s): R42 - DIZZINESS AND GIDDINESS SNOMED Code(s): 255704427 Comment: likely a combination of dehydration and his home meds He receives 1L Bolus but was still orthostatic, will infuse him more slowly overnight to not precipitate a CHF exacerbation. holding flomax (2) CHF (congestive heart failure) Current Visit: Yes Status: Acute Code(s): I50.9 - HEART FAILURE, UNSPECIFIED SNOMED Code(s): 39785149 Comment: stable, hold lasix (3) Full code status Current Visit: Yes Status: Acute Code(s): Z78.9 - OTHER SPECIFIED HEALTH STATUS SNOMED Code(s): 574732884 (4) DVT prophylaxis Current Visit: Yes Status: Acute Code(s): Z29.9 - ENCOUNTER FOR PROPHYLACTIC MEASURES, UNSPECIFIED SNOMED Code(s): 452200500 Comment: heparin (5) Diabetes Current Visit: No Status: Chronic Priority: Medium Code(s): E11.9 - TYPE 2 DIABETES MELLITUS WITHOUT COMPLICATIONS SNOMED Code(s): 18752877 Comment: lantus 10 daily meal coverage poc FS ACHS
[2019-05-07 04:44] LABS: Hematocrit 34 % (42-52); Hemoglobin 11.7 g/dL (14.0-18.0); Mean Corpuscular HGB Conc 35 g/dL (31-36); Mean Corpuscular Hemoglobin 31 pg (27-31); Mean Corpuscular Volume 91 fL (80-94); Mean Platelet Volume 11.3 fL (7.4-10.4); Platelet Count 143 10^3/uL (150-450); Red Blood Count 3.73 10^6 /uL (4.18-5.48); Red Cell Distribution Width 14 % (10-15); White Blood Count 5.2 10^3/uL (3.5-10.8)
[2019-05-07 05:00] LABS: Calcium 7.9 mg/dL (8.6-10.3); EGFR African American 88.4 (>60); Potassium 3.4 mmol/L (3.5-5.0)
[2019-05-07 05:40] LABS: ABS Basophils 0.1 10^3/ul (0-0.2); ABS Eosinophils 0.4 10^3/ul (0-0.6); ABS Lymphocytes 1.4 10^3/ul (1.0-4.8); ABS Monocytes 0.7 10^3/ul (0-0.8); ABS Neutrophils 2.6 10^3/ul (1.5-7.7); Eosinophil % 7.6 %; Lymphocyte % 26.6 %; Nucleated Red Blood Cells % 0.2
[2019-05-07] MEDS ORDERED: Insulin GLARGINE(*) 1 UNITS UNIT SUBCUT SCH (06:00)
[2019-05-07] MEDS: Insulin LISPRO* 1 UNITS UNIT SUBCUT SCH ×4 (07:50→20:18)
[2019-05-07] MEDS ORDERED: Potassium Chloride* LIQUID 20 MEQ/15 ML UDC PO ONE (08:00)
[2019-05-07 10:14] LABS: Troponin I 0.03 ng/mL (<0.03)
[2019-05-07 10:27] LABS: TSH (Thyroid Stimulating Horm) 1.7 mcIU/mL (0.34-5.60)
[2019-05-07] MEDS ORDERED: Potassium Chlor TAB* 20 MEQ TAB.ER PO ONE (10:42)
--- NOTE | 2019-05-07 10:55 | PN ---
Subjective Date of Service: 05/07/19 Interval History: Patient seen at bedside. Reports that the room looks like it "is moving" which he attributes to his macular degeneration but denies dizziness. Feels lightheaded for a moment after standing, then acclimates. When asked about his eating habits, he states that he normally tries to eat 5 small meals a day, but ends up skipping some meals about three days a week. Has not had alcohol in several months. Does not drink water but will drink two bottles of elizabteh cola in a day. Does not report any post prandial lightheadedness. Family History: Unchanged from Admission Social History: Unchanged from Admission Past Medical History: Unchanged from Admission Objective Active Medications: Sodium Chloride (Ns 0.9% 1000 Ml) 1,000 mls @ 150 mls/hr IV .PER [facility]ATE [facility] Last Admin: 05/07/19 07:51 Dose: 150 mls/hr Insulin Glargine (Lantus(*)) 7 units SUBCUT Q24H [facility] Insulin Human Lispro (Humalog*) 0 units SUBCUT ACHS [facility]; Protocol Last Admin: 05/07/19 07:50 Dose: Not Given Vital Signs - 8 hr 05/07/19 05/07/19 03:15 07:15 Temperature 97.7 F 97.9 F Pulse Rate 77 68 Respiratory 19 18 Rate Blood Pressure 140/74 150/75 (mmHg) O2 Sat by Pulse 99 99 Oximetry Oxygen Devices in Use Now: None Appearance: This is a cachectic older gentleman seen resting in bed. No acute distress. Eyes: No Scleral Icterus, PERRLA Ears/Nose/Mouth/Throat: NL Teeth, Lips, Gums, Clear Oropharnyx, Mucous Membranes Moist Neck: NL Appearance and Movements; NL JVP, Trachea Midline Respiratory: Symmetrical Chest Expansion and Respiratory Effort, Clear to Auscultation Cardiovascular: NL Sounds; No Murmurs; No JVD, RRR, No Edema Abdominal: NL Sounds; No Tenderness; No Distention Lymphatic: No Cervical Adenopathy Extremities: No Edema, No Clubbing, Cyanosis Skin: No Rash or Ulcers, No Nodules or Sclerosis Neurological: Alert and Oriented x 3 Lines/Tubes/Other Access: Clean, Dry and Intact Peripheral IV Result Diagrams: 05/07/19 04:32 05/07/19 04:32 Assess/Plan/Problems-Billing Assessment: - Patient Problems (1) Orthostatic hypotension Current Visit: Yes Status: Acute Code(s): I95.1 - ORTHOSTATIC HYPOTENSION SNOMED Code(s): 84738889 Comment: -Continuing to have an orthostatic drop in blood pressure today. Received a liter of fluid in the ED last night. Had normal saline infusing @ 150ml/hr, though dropped rate to 75ml/hr after becoming increasingly hypertensive. No reports of postprandial hypotension. It is possible -Tamsulosin and furosemide held. Ordered CAMRYN stockings, carotid dopplers and echocardiogram. (2) Diabetes type 1, uncontrolled Current Visit: Yes Status: Acute Code(s): E10.65 - TYPE 1 DIABETES MELLITUS WITH HYPERGLYCEMIA SNOMED Code(s): 31519318 Comment: -Blood sugars have been labile. Decreased lantus. Continue fingersticks ACHS with sliding scale coverage. -Nutritional consult ordered due to disordered eating, poor glycemic control. (3) Chest pain Current Visit: Yes Status: Acute Code(s): R07.9 - CHEST PAIN, UNSPECIFIED SNOMED Code(s): 61901647 Comment: -Has been ongoing for three weeks. Had been coughing at that time. Left sided chest pain without radiation, pressure or tightness that is worse when laying or pressing on it, better with rest. Reproducable to palpation. Suspect this is musculoskeletal in nature. -Troponin is maintaining at 0.3, which is around his baseline. -EKG shows sinus rhythm with RBBB. (4) CHF (congestive heart failure) Current Visit: Yes Status: Acute Code(s): I50.9 - HEART FAILURE, UNSPECIFIED SNOMED Code(s): 75715353 Comment: -Stable, hold furosemide. (5) DVT prophylaxis Current Visit: Yes Status: Acute Code(s): Z29.9 - ENCOUNTER FOR PROPHYLACTIC MEASURES, UNSPECIFIED SNOMED Code(s): 363180090 Comment: -Lovenox. (6) Full code status Current Visit: Yes Status: Acute Code(s): Z78.9 - OTHER SPECIFIED HEALTH STATUS SNOMED Code(s): 946801582 Status and Disposition: Condition: Fair Disposition: Admit inpatient. Attending: Tamy Marshall
[2019-05-07] MEDS: Insulin GLARGINE(*) 1 UNITS UNIT SUBCUT SCH (11:52)
[2019-05-07] MEDS ORDERED: NS 0.9% 1000 ML** 1,000 ML IV SCH (16:51)
[2019-05-07] MEDS: Enoxaparin(*) 40 MG/0.4 ML SYR SUBCUT SCH (20:53)
[2019-05-08 06:55] LABS: BUN/Creatinine Ratio 11.1 (8-20); Calcium 8.5 mg/dL (8.6-10.3); EGFR African American 89.4 (>60); EGFR Non-African American 73.9 (>60); Potassium 3.8 mmol/L (3.5-5.0)
[2019-05-08] MEDS ORDERED: Dextrose 50% Syringe 50 ML* 25 GM/50 ML SYRINGE IV PUSH PRN (07:05)
[2019-05-08] MEDS ORDERED: Dextrose 50% VIAL 50 ml ONE (07:06)
[2019-05-08] MEDS: Insulin LISPRO* 1 UNITS UNIT SUBCUT SCH ×4 (09:11→19:51)
--- NOTE | 2019-05-08 10:33 | ECHO ---
*[facility]* [place] [address] Fax #: [phone] Transthoracic Echocardiogram Patient: Cedric Ramachandran : 1945 Study Date: 05/08/2019 Age: 74 Gender: M HR: 66 bpm Height: 65 in /165.1 cm BSA: 1.47 m^2 Weight: 104.8 lb /47.6 kg BMI: 17.5 kg/m^2 *Flag Decorator: * Emily Zuniga RDCS RN *Referring Physician: * Sandra Koch *Reading Physician: * Minal Youssef MD Indications: Syncope. Hypotension-Orthostatic. History: Recent pneumonia. Risk factors: Hypertension. Diabetes mellitus. Conclusions Summary: - Left ventricle: The cavity size is normal. Wall thickness is mildly increased. Systolic function is moderately reduced. The estimated ejection fraction is 35-40%. Mild diffuse hypokinesis. Hypokinesis of the inferolateral myocardium. Hypokinesis of the inferior and inferoseptal myocardium. Hypokinesis of the inferolateral myocardium. - Mitral valve: There is moderate regurgitation. - Aortic valve: The findings are consistent with mild to moderate stenosis. The mean systolic gradient is 1.6 mm Hg. The peak systolic gradient is 3.0 mm Hg. The LVOT to aortic valve VTI ratio is 0.49. The valve area by the velocity-time integral method is 1.24 cm^2. The valve area by the peak velocity method is 1.34 cm^2. - Tricuspid valve: There is mild-moderate regurgitation. - Pulmonary arteries: Systolic pressure is mildly increased, estimated to be 42 mm Hg. - No previous echocardiogram available. Study data: Transthoracic echocardiogram. Procedure: Transthoracic echocardiography was performed. The study was technically limited due to body habitus and poor apical window. Complete 2D, spectral Doppler, and color flow Doppler. Location: Bedside. Patient status: Inpatient. Patient room number: 405. Findings Left ventricle: The cavity size is normal. Wall thickness is mildly increased. Systolic function is moderately reduced. The estimated ejection fraction is 35-40%. Mild diffuse hypokinesis. Regional wall motion abnormalities: Hypokinesis of the inferolateral myocardium. Hypokinesis of the inferior and inferoseptal myocardium. Hypokinesis of the inferolateral myocardium. Doppler parameters are consistent with abnormal left ventricular relaxation (grade 1 diastolic dysfunction). Right ventricle: The cavity size is normal. Systolic function is low normal. Left atrium: The atrium is normal in size. Right atrium: The atrium is normal in size. Mitral valve: The Mitral valve annulus appears moderately calcified. The leaflets are mildly thickened. There is no evidence of stenosis. There is moderate regurgitation. Aortic valve: Not well visualized. The cusps appear mildly restricted, especially the NCC, in the PATRICIA view. The valve is otherwise not seen and Doppler angles for evaluation of aortic valve area were poor. The annulus is calcified. The leaflets are mildly thickened. The findings are consistent with mild to moderate stenosis. There is no significant regurgitation. Tricuspid valve: The leaflets are normal thickness. There is no evidence of stenosis. There is mild-moderate regurgitation. Pulmonic valve: Not well visualized. Aorta: Aortic root: The aortic root is not dilated. Ascending aorta: The ascending aorta is not visualized. Aortic arch: The aortic arch is not visualized. Pericardium: There is no pericardial effusion. Pulmonary arteries: Not well visualized. Systolic pressure is mildly increased, estimated to be 42 mm Hg. Pulmonary veins: Not well visualized. Measurements Left ventricle Value Ref Aortic valve Value Ref JERMAIN, LAX 4.3 cm 4.2 - Peak v, S 0.87 m/sec ----- 5.8 VTI, S 22.1 cm ----- ESD, LAX 3.8 cm 2.5 - Mean grad, S 1.6 mm Hg ----- 4.0 Peak grad, S 3.0 mm Hg ----- FS, LAX (L) 12 % 25 - 43 LVOT/AV, VTI ratio 0.49 ----- PW, ED 1.0 cm 0.6 - STEFANIE, VTI 1.24 cm^2 ----- 1.0 STEFANIE, Vmax 1.34 cm^2 ----- IVS/PW, ED 1.26 -------- E', lat isauro, TDI (L) 3.6 cm/sec >=10.0 Mitral valve Value Ref E/e', lat isauro, TDI 41 -------- Peak E 1.5 m/sec ----- E', med isauro, TDI (L) 3.0 cm/sec >=7.0 Peak A 1.07 m/sec --- -- E/e', med isauro, TDI 50 -------- VTI leaflet coapt 31.8 cm ----- E', avg, TDI 3.3 cm/sec -------- Decel time 170 ms ----- E/e', avg, TDI (H) 45 <=14 PHT 49 ms --- -- Mean grad, D 4.2 mm Hg ----- LVOT Value Ref Peak grad, D 9.8 mm Hg ----- Diam, S 1.80 cm -------- Peak E/A ratio 1.4 ----- Area 2.5 cm^2 -------- MVA, PHT 4.5 cm^2 ----- Peak shanta, S 0.46 m/sec -------- MR peak v 6.01 m/sec ----- VTI, S 10.8 cm -------- ERO, PISA 0.18 cm^2 ----- Peak grad, S 1 mm Hg -------- Mean grad, S 0 mm Hg -------- Pulmonic valve Value Ref Peak v, S 0.63 m/sec ----- Ventricular septum Value Ref Peak grad, S 1.6 mm Hg ----- IVS, ED (H) 1.3 cm 0.6 - 1.0 Tricuspid valve Value Ref TR peak v (H) 2.9 m/sec <=2.8 Right ventricle Value Ref Peak RV-RA grad, S 34 mm Hg ----- JERMAIN minor ax, A4C 3.0 cm 1.9 - mid 3.5 Aortic root Value Ref Pressure, S 42 mm Hg -------- Root diam 3.4 cm <3.7 Left atrium Value Ref Pulmonary artery Value Ref SI dim ES, LAX 2.7 cm -------- Pressure, S 42.0 mm Hg ----- ML dim, A4C 4.0 cm -------- SI dim, A4C 4.5 cm -------- Right atrium Value Ref ML dim, ES, A4C 3.1 cm 2.6 - 4.4 SI dim, ES, A4C 4.1 cm 3.4 - 5.3 SI dim/bsa, ES, A4C 2.8 cm/m^2 1.8 - 3.0 Estimated RAP 8 mm Hg -------- Legend: (L) and (H) manuela values outside specified reference range. Prepared and electronically signed by Minal Youssef MD 05/08/2019 10:33
[2019-05-08] MEDS: Insulin GLARGINE(*) 1 UNITS UNIT SUBCUT SCH (12:00)
[2019-05-08 12:23] LABS: HDL Cholesterol 49.2 mg/dL
--- NOTE | 2019-05-08 14:26 | PN ---
Subjective Date of Service: 05/08/19 Interval History: Patient is feeling better today. Patient feels he did well with PT. Patient feels unsteady on his feet. Patient feels this has been going on for 6 months. Patient also states he has orthopnea and LOPEZ for 3 months. Patient denies ever having an FL or any chest pain. Patient denies F/C, N/V, abdominal pain, diarrhea, CP, SOB, or other pain. Family History: Unchanged from Admission Social History: Unchanged from Admission Past Medical History: Unchanged from Admission Objective Active Medications: Dextrose (D50w Syringe 50 Ml*) 25 gm IV PUSH .FOR FS < 60 - SS PRN PRN Reason: FS < 60 Enoxaparin Sodium (Lovenox(*)) 40 mg SUBCUT Q24H [facility] Last Admin: 05/07/19 20:53 Dose: 40 mg Insulin Glargine (Lantus(*)) 7 units SUBCUT Q24H [facility] Last Admin: 05/08/19 12:00 Dose: 7 units Insulin Human Lispro (Humalog*) 0 units SUBCUT [facility]; Protocol Last Admin: 05/08/19 11:59 Dose: 4 units Vital Signs - 8 hr 05/08/19 05/08/19 05/08/19 07:15 08:00 11:15 Temperature 97.4 F 98.8 F Pulse Rate 67 73 Respiratory 20 18 22 Rate Blood Pressure 152/78 142/69 (mmHg) O2 Sat by Pulse 100 100 Oximetry 05/08/19 05/08/19 12:52 12:53 Temperature Pulse Rate 79 94 Respiratory Rate Blood Pressure 177/95 174/92 (mmHg) O2 Sat by Pulse Oximetry Oxygen Devices in Use Now: None Appearance: Patient is a 74yo male who appears older than stated age and is sitting in the bed in [facility]. Eyes: No Scleral Icterus, PERRLA Ears/Nose/Mouth/Throat: NL Teeth, Lips, Gums, Clear Oropharnyx, Mucous Membranes Moist Neck: NL Appearance and Movements; NL JVP Respiratory: Symmetrical Chest Expansion and Respiratory Effort, Clear to Auscultation Cardiovascular: NL Sounds; No Murmurs; No JVD, RRR, No Edema Abdominal: NL Sounds; No Tenderness; No Distention, No Hepatosplenomegaly Lymphatic: No Cervical Adenopathy Extremities: No Edema, No Clubbing, Cyanosis Skin: No Rash or Ulcers, No Nodules or Sclerosis Neurological: Alert and Oriented x 3, NL Sensation, NL Muscle Strength and Tone , - - CN II-XII intact. Result Diagrams: 05/07/19 04:32 05/08/19 06:22 Assess/Plan/Problems-Billing Assessment: Patient is a 74yo male with a PMH fo DM I, Carotid Stenosis, CHF, who is admitted to the hospital for dizziness on standing who is found to have a newly decreased Ejection Fraction. - Patient Problems (1) Orthostatic hypotension Current Visit: Yes Status: Acute Code(s): I95.1 - ORTHOSTATIC HYPOTENSION SNOMED Code(s): 04151047 Comment: - Not orthostatic today. No Hypertensive. - Stop Fluids, Hold Lasix at this time. - Continue to hold Lasix - Continue CAMRYN stockings - Possibly related to autonomic neuropathy from diabetes. (2) CHF (congestive heart failure) Current Visit: Yes Status: Acute Code(s): I50.9 - HEART FAILURE, UNSPECIFIED SNOMED Code(s): 57766305 Comment: - Newly found decreased EF at 35-40% - Stress test in AM - Minimally increased troponin - Start BB, ACEI when able. - Stable, hold furosemide. (3) Carotid artery disease Current Visit: No Status: Chronic Priority: Medium Code(s): I77.9 - DISORDER OF ARTERIES AND ARTERIOLES, UNSPECIFIED SNOMED Code(s): 833035999 Comment: - Stable, severe - Follow up Vascular Surgery in early May. (4) Diabetes Current Visit: No Status: Chronic Priority: Medium Code(s): E11.9 - TYPE 2 DIABETES MELLITUS WITHOUT COMPLICATIONS SNOMED Code(s): 18626614 Comment: - Type 1 - FS ACHS with SSI - Decrease Lantus for morning hypoglycemia. (5) Full code status Current Visit: Yes Status: Acute Code(s): Z78.9 - OTHER SPECIFIED HEALTH STATUS SNOMED Code(s): 403814035 (6) DVT prophylaxis Current Visit: Yes Status: Acute Code(s): Z29.9 - ENCOUNTER FOR PROPHYLACTIC MEASURES, UNSPECIFIED SNOMED Code(s): 404590596 Comment: -Lovenox. Status and Disposition: Inpatient pending Stress Test.
[2019-05-08] MEDS: Enoxaparin(*) 40 MG/0.4 ML SYR SUBCUT SCH (20:27)
[2019-05-09] MEDS ORDERED: Dextrose 50% VIAL 50 ml ONE (00:46)
[2019-05-09] MEDS: Dextrose 50% VIAL 50 ml IV PUSH PRN ×2 (00:50→05:55)
[2019-05-09] MEDS ORDERED: Naproxen TAB* 250 MG PO ONE (01:58)
[2019-05-09 05:22] LABS: Hematocrit 33 % (42-52); Hemoglobin 11.6 g/dL (14.0-18.0); Mean Corpuscular HGB Conc 35 g/dL (31-36); Mean Corpuscular Hemoglobin 32 pg (27-31); Mean Corpuscular Volume 90 fL (80-94); Mean Platelet Volume 11.2 fL (7.4-10.4); Platelet Count 129 10^3/uL (150-450); Red Blood Count 3.68 10^6 /uL (4.18-5.48); Red Cell Distribution Width 14 % (10-15); White Blood Count 6.9 10^3/uL (3.5-10.8)
[2019-05-09 05:38] LABS: BUN/Creatinine Ratio 9.3 (8-20); Calcium 8.2 mg/dL (8.6-10.3); EGFR African American 81.7 (>60); EGFR Non-African American 67.6 (>60); Magnesium 1.6 mg/dL (1.9-2.7); Potassium 3.5 mmol/L (3.5-5.0)
[2019-05-09] MEDS ORDERED: Magnesium Sulfate IV* 3 GM in NS 0.9% 100 ML* 100 ML IVPB ONE (08:15)
[2019-05-09] MEDS: Insulin LISPRO* 1 UNITS UNIT SUBCUT SCH ×4 (08:20→19:38)
[2019-05-09 08:25] LABS: ABS Basophils 0.1 10^3/ul (0-0.2); ABS Eosinophils 0.4 10^3/ul (0-0.6); ABS Lymphocytes 1.6 10^3/ul (1.0-4.8); ABS Monocytes 0.7 10^3/ul (0-0.8); ABS Neutrophils 4.2 10^3/ul (1.5-7.7); Eosinophil % 5.8 %; Lymphocyte % 22.5 %; Nucleated Red Blood Cells % 0.1
[2019-05-09] MEDS ORDERED: Insulin GLARGINE(*) 1 UNITS UNIT SUBCUT SCH (09:00)
[2019-05-09] MEDS ORDERED: Regadenoson* 0.4 MG/5 ML SYRINGE ONE (11:13)
--- NOTE | 2019-05-09 14:10 | PN ---
Subjective Date of Service: 05/09/19 Interval History: Patient is very hungry when examined. Patient had slight shortness of breath and a brief moment of chest pain during his stress test after the administration of the chemical agent. Patient feels more steady on his feet and has no dizziness on standing. Patient denies F/C, N/V, abdominal pain, diarrhea , CP, SOB, or other pain. Family History: Unchanged from Admission Social History: Unchanged from Admission Past Medical History: Unchanged from Admission Objective Active Medications: Atorvastatin Calcium (Lipitor*) 40 mg PO 1700 [facility] Dextrose (Dextrose 50% Vial 50 Ml*) 50 ml IV PUSH .FOR FS < 60 - SS PRN PRN Reason: FS < 60 Last Admin: 05/09/19 05:55 Dose: 50 ml Enoxaparin Sodium (Lovenox(*)) 40 mg SUBCUT Q24H [facility] Last Admin: 05/08/19 20:27 Dose: 40 mg Insulin Glargine (Lantus(*)) 5 units SUBCUT Q24H [facility] Last Admin: 05/09/19 11:07 Dose: Not Given Insulin Human Lispro (Humalog*) 0 units SUBCUT ACHS [facility]; Protocol Last Admin: 05/09/19 12:57 Dose: Not Given Lisinopril (Prinivil Tab*) 5 mg PO DAILY [facility] Metoprolol Succinate (Toprol Xl Tab*) 12.5 mg PO DAILY [facility] Vital Signs - 8 hr 05/09/19 05/09/19 07:15 08:00 Temperature 98.7 F Pulse Rate 66 Respiratory 19 19 Rate Blood Pressure 130/65 (mmHg) O2 Sat by Pulse 99 Oximetry Oxygen Devices in Use Now: None Appearance: Patient is a 74yo male who appears older than stated age and is sitting in the bed in [facility]. Eyes: No Scleral Icterus, PERRLA Ears/Nose/Mouth/Throat: NL Teeth, Lips, Gums, Clear Oropharnyx, Mucous Membranes Moist Neck: NL Appearance and Movements; NL JVP, Trachea Midline Respiratory: Symmetrical Chest Expansion and Respiratory Effort, Clear to Auscultation Cardiovascular: NL Sounds; No Murmurs; No JVD, RRR, No Edema Abdominal: NL Sounds; No Tenderness; No Distention, No Hepatosplenomegaly Lymphatic: No Cervical Adenopathy Extremities: No Edema, No Clubbing, Cyanosis Skin: No Rash or Ulcers, No Nodules or Sclerosis Neurological: Alert and Oriented x 3, NL Sensation, NL Gait, NL Muscle Strength and Tone, - - Cerebellar testing unremarkable. CN II-XII grossly intact. Result Diagrams: 05/09/19 05:11 05/09/19 05:08 Assess/Plan/Problems-Billing Assessment: Patient is a 74yo male with a PMH fo DM I, Carotid Stenosis, CHF, who is admitted to the hospital for dizziness on standing who is found to have a newly decreased Ejection Fraction. - Patient Problems (1) Orthostatic hypotension Current Visit: Yes Status: Acute Code(s): I95.1 - ORTHOSTATIC HYPOTENSION SNOMED Code(s): 30142052 Comment: - Normotensive - Continue to hold Lasix - Continue CAMRYN stockings - Possibly related to autonomic neuropathy from diabetes. - Recheck in AM after initiation of antihypertensives. (2) CHF (congestive heart failure) Current Visit: Yes Status: Acute Code(s): I50.9 - HEART FAILURE, UNSPECIFIED SNOMED Code(s): 65752469 Comment: - Newly found decreased EF at 35-40% - Stress test shows large fixed perfusion defect with no reversible ischemia. - Discussed with Cardiology who recommended optimization of HF, secondary prevention, and outpatient follow up with Dr. Kim. - Minimally increased troponin - Start BB, ACEI - Stable, hold furosemide. - Start Statin and Aspirin for secondary prevention of [place]. (3) Carotid artery disease Current Visit: No Status: Chronic Priority: Medium Code(s): I77.9 - DISORDER OF ARTERIES AND ARTERIOLES, UNSPECIFIED SNOMED Code(s): 568149130 Comment: - Stable, severe - Follow up Vascular Surgery in early May. - Start Statin and Aspirin (4) Diabetes Current Visit: No Status: Chronic Priority: Medium Code(s): E11.9 - TYPE 2 DIABETES MELLITUS WITHOUT COMPLICATIONS SNOMED Code(s): 29512917 Comment: - Type 1 - FS ACHS with SSI - Decrease Lantus for morning hypoglycemia. (5) Full code status Current Visit: Yes Status: Acute Code(s): Z78.9 - OTHER SPECIFIED HEALTH STATUS SNOMED Code(s): 482239411 (6) DVT prophylaxis Current Visit: Yes Status: Acute Code(s): Z29.9 - ENCOUNTER FOR PROPHYLACTIC MEASURES, UNSPECIFIED SNOMED Code(s): 041997788 Comment: -Tanja. Status and Disposition: Inpatient, hopeful D/C tomorrow if able to tolerate BP meds.
[2019-05-09] MEDS: Metoprolol Succinate XL TAB* 25 MG PO SCH (15:43)
[2019-05-09] MEDS: Aspirin EC TAB* 81 MG TAB.EC PO SCH (15:44)
[2019-05-09] MEDS: Lisinopril TAB* 5 MG PO SCH (15:44)
[2019-05-09] MEDS ORDERED: Atorvastatin* 40 MG TAB PO SCH (17:00)
[2019-05-09] MEDS: Enoxaparin(*) 40 MG/0.4 ML SYR SUBCUT SCH (19:38)
[2019-05-10 05:16] LABS: Hematocrit 33 % (42-52); Hemoglobin 11.2 g/dL (14.0-18.0); Mean Corpuscular HGB Conc 34 g/dL (31-36); Mean Corpuscular Hemoglobin 31 pg (27-31); Mean Corpuscular Volume 91 fL (80-94); Mean Platelet Volume 11.8 fL (7.4-10.4); Platelet Count 132 10^3/uL (150-450); Red Blood Count 3.62 10^6 /uL (4.18-5.48); Red Cell Distribution Width 14 % (10-15); White Blood Count 5.6 10^3/uL (3.5-10.8)
[2019-05-10 05:33] LABS: BUN/Creatinine Ratio 9.9 (8-20); Calcium 7.9 mg/dL (8.6-10.3); EGFR African American 87.4 (>60); EGFR Non-African American 72.2 (>60); Magnesium 1.9 mg/dL (1.9-2.7); Potassium 3.7 mmol/L (3.5-5.0)
[2019-05-10] MEDS: Dextrose 50% VIAL 50 ml IV PUSH PRN (05:41)
[2019-05-10 05:43] LABS: ABS Basophils 0.1 10^3/ul (0-0.2); ABS Eosinophils 0.5 10^3/ul (0-0.6); ABS Lymphocytes 1.2 10^3/ul (1.0-4.8); ABS Monocytes 0.7 10^3/ul (0-0.8); ABS Neutrophils 3.1 10^3/ul (1.5-7.7); Eosinophil % 8.8 %; Large Platelets Present; Lymphocyte % 21.9 %; Nucleated Red Blood Cells % 0.2
[2019-05-10] MEDS: Insulin LISPRO* 1 UNITS UNIT SUBCUT SCH (07:30)
[2019-05-10 09:54] VITALS: BP 126/64
[2019-05-10] MEDS: Metoprolol Succinate XL TAB* 25 MG PO SCH (09:57)
[2019-05-10] MEDS: Aspirin EC TAB* 81 MG TAB.EC PO SCH (09:57)
[2019-05-10] MEDS: Lisinopril TAB* 5 MG PO SCH (09:58)
--- NOTE | 2019-05-10 23:40 | DS ---
CC: Dr. Aletha Molina; Dr. Guillermo Kim * DISCHARGE SUMMARY: DATE OF ADMISSION: 05/06/19 DATE OF DISCHARGE: 05/10/19 PRIMARY CARE PROVIDER: Dr. Aletha Molina. OUT PATIENT BID CLERK: Dr. Guillermo Kim. MY ATTENDING WHILE IN THE HOSPITAL: Dr. Maddie Wagner.* (DICTATED BY [facility]) PRIMARY DISCHARGE DIAGNOSES: 1. New onset of heart failure with reduced ejection fraction. 2. Orthostatic hypotension due to dehydration and possibly autonomic insufficiency. 3. Hypoglycemia related to insulin use. SECONDARY DISCHARGE DIAGNOSES: 1. Hypertension. 2. Hyperlipidemia. 3. Hyperbilirubinemia. 4. Bilateral carotid stenosis. 5. Coronary artery disease. STUDIES DONE WHILE IN THE HOSPITAL: Chest x-ray from 05/06/19, read as constellation of findings most suggestive of interstitial pulmonary edema superimposed and chronic obstructive pulmonary disease, probable mild interval decrease in pleural effusions compared with 04/28/19 exam. Transesophageal echocardiogram from 05/07/19, read as left ventricular cavity size normal, wall thickness mildly increased, systolic function is mildly reduced, estimated ejection fraction is 35% to 40%. Mild diffuse hypokinesis, hypokinesis with inferolateral myocardium, hypokinesis with the inferior and anteroseptal myocardium, hypokinesis of the inferior wall myocardium. Aortic valve findings consistent with [id number] stenosis. Pulmonary artery systolic pressure mildly increased estimated to be 45 mmHg. Tricuspid valve with [id number] regurgitation. No previous echocardiogram. Carotid Doppler study from 05/08/19, read as greater than 70% right internal carotid stenosis with interval worsening based on the peak systolic velocity of proximal segmented RCA, occluded left internal carotid artery corresponding to history of prior location. This is new compared with 2012 exam. Nuclear medicine scan from 05/09/19, read as high-risk, large fixed defect on the lateral wall extending to inferior wall, ejection fraction 50% at stress and 46% at rest. Global hypokinesis is noted. No definitive reversible changes are noted. MEDICATIONS AT DISCHARGE: 1. Naproxen 500 mg p.o. 3 times a week as needed. 2. Insulin Tresiba FlexTouch 5 units subcutaneous daily. 3. Insulin lispro sliding scale with meals per patient's previous order. 4. Nicotrol nasal spray as needed. 5. Bacillus coagulans probiotic 1 chew p.o. daily. 6. Aspirin 81 mg p.o. daily. 7. Lipitor 40 mg p.o. daily. 8. Lisinopril 5 mg p.o. daily. 9. Metoprolol succinate 12.5 mg p.o. daily. New medications on discharge: 1. Aspirin. 2. Atorvastatin. 3. Lisinopril. 4. Metoprolol. Medications discontinued at discharge: 1. Furosemide 40 mg p.o. daily. 2. Tamsulosin 0.4 mg p.o. daily. HOSPITAL COURSE: This is a brief summary of the patient's presentation. For more details, please see the history and physical from Jaylyn Hartley on . In brief, the patient is a 74-year-old male with past medical history significant for the above, who recently presented to the emergency department due to peripheral edema and shortness of breath, which had been worsening over approximately the last 3 months. The patient had an episode at that time wherein he was working on a [place] and suddenly felt very nauseous, vomited and this lasted for a while and then since that has been getting worsening dyspnea on exertion. The patient had no chest pain at that time. The patient continues to smoke approximately 5 cigarettes to 1 pack per day. The patient came to the emergency department with obvious fluid overload, but refused to be admitted. The patient was discharged with Lasix and a nitroglycerin patch, and was scheduled to followup for cardiology with Dr. Kim, which he went to and then was referred directly to the emergency department. The patient was admitted. The patient was found to be have markedly orthostatic hypotension and was given fluids until his orthostatic hypotension resolved. However, during this time, the patient was also evaluated with transthoracic echocardiogram and a carotid Doppler study, which were read as above. This carotid Doppler study is consistent with what the patient is aware of being his known history of this. The patient has elevated BNP at 560, but his BNP was previously greater than 1300. The patient had an elevated bilirubin as well, but his peak bilirubin was previously last month over 15. The patient has been evaluated by Dr. Leslie for this and will follow up him outpatient. The patient's bilirubin declined to 2.9 on last check during his hospitalization. The patient due to the above results of the transesophageal echocardiogram, which was obtained due to his orthostatic hypotension, a stress test was obtained, which showed no reversible defects that would prompt catheterization urgently. This was discussed with Dr. Minal Youssef of Cardiology, who recommended optimization of the patient's heart failure therapy and outpatient followup with Dr. Kim. The patient was started on lisinopril and metoprolol as above, which he tolerated. The patient had good blood pressure control and mild orthostatic decrease in his blood pressure on the day of discharge without any symptoms as well as good functional status. The patient was stable enough for discharge to home on 05/10. PHYSICAL EXAM ON THE DAY OF DISCHARGE: General: The patient is a 74-year-old male, who appears stated age and sitting comfortably in bed, in no acute distress. Vital Signs: Temperature 98.4, pulse rate 64, respiratory rate 18, oxygen saturation 97% on room air, blood pressure 155/68. HEENT: Head normocephalic, atraumatic. Sclerae anicteric. No conjunctival injection. Nasal mucosa moist. Oral mucosa moist. No pharyngeal erythema, discharge, or exudate. Neck: Supple, nontender. No lymphadenopathy. No carotid bruits auscultated. No JVD. Cardiac: Regular rate and rhythm. No clicks, murmurs, gallops, or rubs. Pulses are 2+ in the bilateral dorsalis pedis, posterior tibialis, and radial areas. No bilateral lower extremity edema noted. Respiratory: Clear to auscultation bilaterally. No wheezes, rales, or rhonchi. Good air exchange bilaterally. Abdomen: Soft, nontender, nondistended. Bowel sounds present and normoactive in all 4 quadrants. No hepatosplenomegaly. No abdominal bruits auscultated. No hepatojugular reflux. Genitourinary: No suprapubic or CVA tenderness. Skin: Clean, dry, and intact. No rash. Neuro: Cranial nerves II through XII intact. No other focal deficits. Alert and oriented x3. Psychiatric: Pleasant and cooperative. DISCHARGE PLAN BY PROBLEM: 1. Newly diagnosed heart failure with reduced ejection fraction. This is likely related to a silent DC that patient had approximately 3 months ago per his report. The patient has been started on lisinopril and metoprolol and should follow up with outpatient pharmacy technician program director. The patient is tolerating these medications well at this time and feels much better than when he was previously admitted. The patient appears to have been over diuresed causing his orthostatic hypotension. The patient was not discharged on diuretics, but was told to keep close track of his weight and take these records to his primary care provider's appointment and his pharmacy technician program director's appointment. The patient was also instructed to quit smoking if possible. 2. Coronary artery disease, status post DC. The patient has had a silent DC. We will discharge him on Lipitor and aspirin for secondary prevention as well as metoprolol. The patient will follow up with Dr. Kim and his primary care provider for optimization of the secondary prevention regimen. Catheterization should be considered, but this does not need to be on an urgent basis. 3. Carotid artery disease. The patient has known severe carotid artery disease and has followup schedule with his vascular surgeon in early 2019. The patient should go to this appointment. The patient will start on Lipitor and aspirin for primary prevention of stroke and endovascular therapy should be considered given the severity of his disease. 4. Hypertension. The patient was hypertensive while in the hospital. He was started on lisinopril and metoprolol. The patient's tamsulosin has been discontinued. If the patient has significant urinary symptoms, it may be reintroduced cautiously given his orthostatic hypotension and need for additional blood pressure lowering agents for his heart failure is likely low priority at this time. 5. Hyperlipidemia. The patient's LDL is only 79, but given his DC, has been started on moderate intensive statin therapy. 6. Diabetes mellitus, type 1. The patient is managed by the [facility]. He should followup with outpatient tube mounter per his usual team. The patient should resume his home dosing of his glargine and sliding scale insulin. The patient while on the hospital had several hypoglycemic episodes with which he was not symptomatic and his hemoglobin A1c was 6.2. DISCHARGE DISPOSITION: To home. DISCHARGE CONDITION: Stable. TIME SPENT: Approximately 60 minutes was spent on the discharge of this patient , 30 of which was spent [id number] with the patient obtaining history and physical and discussing treatment plan. [facility] [id number]/[facility] #: [id number] ERINN
== END 2019-05-10 11:30 | disposition home or self-care (01) | DRG 292 ==
LOC: ED 14:12 → MED 21:28 → OBSVTOIN 05-07 11:00
PROVIDERS: ADMIT Student in an Organized Health Care Education/Training Program; ATTEND Internal Medicine
DX: I11.0 Hypertensive heart disease with heart failure (principal); K50.90 Crohn's disease, unspecified, without complications; I50.23 Acute on chronic systolic (congestive) heart failure; E86.0 Dehydration; I95.1 Orthostatic hypotension; E78.5 Hyperlipidemia, unspecified; E80.6 Other disorders of bilirubin metabolism; I65.23 Occlusion and stenosis of bilateral carotid arteries; I25.10 Atherosclerotic heart disease of native coronary artery without angina pectoris; I07.1 Rheumatic tricuspid insufficiency; E10.649 Type 1 diabetes mellitus with hypoglycemia without coma; R07.9 Chest pain, unspecified; J44.9 Chronic obstructive pulmonary disease, unspecified; K21.9 Gastro-esophageal reflux disease without esophagitis; F17.210 Nicotine dependence, cigarettes, uncomplicated; Z88.1 Allergy status to other antibiotic agents; Z79.4 Long term (current) use of insulin; Z79.82 Long term (current) use of aspirin; Z79.899 Other long term (current) drug therapy; I25.2 Old myocardial infarction; Z88.8 Allergy status to other drugs, medicaments and biological substances; Z98.1 Arthrodesis status; Z28.21 Immunization not carried out because of patient refusal
CPT/HCPCS: 36415; 71046; 78452; 80048; 80053; 80061; 83036; 83605; 83735; 83880; 84443; 84484; 85025; 93005; 93017; 93306; 93880; 99285; 99406; A9270-GY; A9502; G8978-GP-CH; G8979-GP-CH; G8980-GP-CH; J1650; J2785; J3475; J3480

== ENCOUNTER 2019-05-29 13:17 | Emergency (ER) | payer MEDICARE, BC ==
--- NOTE | 2019-05-29 14:17 | ED ---
Medical Screening - HPI Summary HPI Summary: This pt is a 74 Y/O M presenting to [facility] with a CC of a PTT level of >240.0 on two separate conditions: 05/24/19 and 05/29/2019. He states that his doctor called him while he was home and told him to come to the ED to have further evaluations. He denies any CP, headaches, N/V, fevers, chills, and SOB. He states that he had jaundice 2-3 months ago but he was given prednisone which he had an adverse effect with and had elevated blood glucose levels. He states that he hasnt drunk any alcohol in 2-3 months. He states that he had a similar episode in 1998 and was told that he had a Vitamin K deficiency. He has no aggravating or alleviating factors. He has a PMHx of CAD, HTN, and COPD. He is supposed to receive 3 cardiac stents tomorrow. - History of Current Complaint Chief Complaint: EDGeneral Stated Complaint: ABNORMAL BLOOD TEST PER PT Time Seen by Provider: 05/29/19 13:59 Onset/Duration: Started Days Ago - 3, Still Present Severity: severe - >240.00 Associated Signs and Symptoms: Negative - He denies any CP, headaches, N/V, fevers, chills, and SOB, Other - PTT level of >240.00 PMH/Surg Hx/FS Hx/Imm Hx Previously Healthy: Yes Endocrine/Hematology History: Denies: Hx Diabetes, Hx Thyroid Disease Cardiovascular History: Reports: Hx Coronary Artery Disease, Hx Hypertension Denies: Hx Angina, Hx Hypercholesterolemia, Hx Myocardial Infarction, Hx Pacemaker/ICD, Hx Peripheral Vascular Disease, Hx Valvular Heart Disease Comment Only: Other Cardiovascular Problems/Disorders - PT DENIES ALL HX OF HEART OR LUNGS Respiratory History: Reports: Hx Chronic Obstructive Pulmonary Disease (COPD) Denies: Hx Asthma GI History: Reports: Hx Crohn's Disease, Hx Gastroesophageal Reflux Disease Denies: Hx Ulcer History: Reports: Other Problems/Disorders - ENLARGE PROSTATE Denies: Hx Chronic Renal Failure Musculoskeletal History: Reports: Other Musculoskeletal History Denies: Hx Arthritis, Hx Osteoporosis Sensory History: Denies: Hx Cataracts, Hx Contacts or Glasses, Hx Glaucoma, Hx Deafness, Hx Hearing Aid Opthamlomology History: Denies: Hx Cataracts, Hx Contacts or Glasses, Hx Glaucoma Neurological History: Denies: Hx Dementia, Hx Headaches, Hx Seizures, Hx Transient Ischemic Attacks (TIA) Psychiatric History: Denies: Hx Anxiety, Hx Depression, Hx Panic Disorder - Cancer History Hx Chemotherapy: No Hx Radiation Therapy: No - Surgical History Surgical History: Yes Surgery Procedure, Year, and Place: Back surgery l4/l5 fusion, Right wrist broken/repaired, Tonsillectomy Hx Anesthesia Reactions: No - Immunization History Immunizations Up to Date: Yes Infectious Disease History: No Infectious Disease History: Denies: Hx Clostridium Difficile, Hx Hepatitis, Hx Human Immunodeficiency Virus (HIV), Hx of Known/Suspected MRSA, Hx Shingles, Hx Tuberculosis, Hx Known/ Suspected VRE, Hx Known/Suspected VRSA, History Other Infectious Disease, Traveled Outside the [place] in Last 30 Days - Family History Known Family History: Positive: Blood Disorder - Lupus, Other - mother of lupus; father age 91 of old age. - Social History Occupation: Retired Lives: With Family Alcohol Use: None Alcohol Amount: States he hasn't had alcohol in 3 months Hx Substance Use: No Substance Use Type: Reports: None Hx Tobacco Use: Yes Smoking Status (MU): Former Smoker Type: Cigarettes Amount Used/How Often: 1/2 ppd Length of Time of Smoking/Using Tobacco: since age [age] Have You Smoked in the Last Year: Yes Review of Systems Negative: Fever, Chills Positive: Other - PTT level of >240.00. Negative: Chest Pain Negative: Shortness Of Breath Negative: Vomiting, Nausea Negative: Headache All Other Systems Reviewed And Are Negative: Yes Physical Exam - Summary Physical Exam Summary: Appearance: The patient is well-nourished in no acute distress and in no acute pain. Skin: The skin is warm and dry and skin color reflects adequate perfusion. HEENT: The head is normocephalic and atraumatic. The pupils are equal and reactive. The conjunctivae are clear and without drainage. Nares are patent and without drainage. Mouth reveals moist mucous membranes and the throat is without erythema and exudate. The external ears are intact. The ear canals are patent and without drainage. The tympanic membranes are intact. Neck: The neck is supple with full range of motion and non-tender. There are no carotid bruits. There is no neck vein distension. Respiratory: Chest is non-tender. Lungs are clear to auscultation and breath sounds are symmetrical and equal. Cardiovascular: Heart is regular rate and rhythm. There is no murmur or rub auscultated. There is no peripheral edema and pulses are symmetrical and equal. Abdomen: The abdomen is soft and non-tender. There are normal bowel sounds heard in all four quadrants and there is no organomegaly palpated. Musculoskeletal: There is no back tenderness noted. Extremities are non-tender with full range of motion. There is good capillary refill. There is no peripheral edema or calf tenderness elicited. Neurological: Patient is alert and oriented to person, place and time. The patient has symmetrical motor strength in all four extremities. Cranial nerves are grossly intact. Deep tendon reflexes are symmetrical and equal in all four extremities. Psychiatric: The patient has an appropriate affect and does not exhibit any anxiety or depression. Triage Information Reviewed: Yes Vital Signs On Initial Exam: Initial Vitals Temp Pulse Resp BP Pulse Ox 99.0 F 75 14 115/56 97 05/29/19 13:19 05/29/19 13:19 05/29/19 13:19 05/29/19 13:19 05/29/19 13:19 Vital Signs Reviewed: Yes Procedures - Sedation Patient Received Moderate/Deep Sedation with Procedure: No Diagnostics - Vital Signs Vital Signs Temp Pulse Resp BP Pulse Ox 05/29/19 13:56 73 96 05/29/19 13:19 99.0 F 75 14 115/56 97 - Laboratory Result Diagrams: 05/29/19 14:17 05/29/19 14:17 Lab Statement: Any lab studies that have been ordered have been reviewed, and results considered in the medical decision making process. Re-Evaluation - Re-Evaluation First Eval Re-Evaluation Time: 15:46 Change: Unchanged Comment: Pt's repeat PTT lab found that he still has a value of >240.00 Second Eval Re-Evaluation Time: 16:11 Change: Unchanged Comment: Pt refuses admission and states that he will follow up as an out patient. Course/Dx - Course Course Of Treatment: Mr. Ramachandran presented with no complaint, nontoxic in appearance with stable vitals. He is apparently scheduled to have cardiac stenting tomorrow and routine labs revealed his PTT to be elevated. He was told to come to the hospital. Labs are repeated here and his PTT is greater than 240 with an INR that is normal for him at 1.12. I spoke with who recommended admission and had labs to the blood already obtained. Patient was unwilling to stay. I recommended that he follow up with Dr. Eddy as soon as possible and call 911 if he had any bleeding whatsoever. I informed him that they would not be doing the surgery until this was resolved. - Diagnoses Provider Diagnoses: Coagulopathy - Physician Notifications Discussed Care Of Patient With: Shi Eddy Time Discussed With Above Provider: 16:11 Instructed by Provider To: Admit As Inpatient Discharge ED - Sign-Out/Discharge Documenting (check all that apply): Patient Departure - discharge - Discharge Plan Condition: Stable Disposition: HOME Patient Education Materials: Vitamin K in Foods (ED), Bleeding Disorders (ED) Referrals: Aletha Meza MD [Primary Care Provider] - 2 Days Shi Eddy MD [Medical Doctor] - Additional Instructions: PLEASE FOLLOW UP WITH DR. EDDY, HEMATOLOGY, AND PRIMARY CARE PHYSICIAN BEFORE YOUR SURGERY. RETURN TO THE EMERGENCY DEPARTMENT FOR ANY NEW OR WORSENING SYMPTOMS. - Billing Disposition and Condition Condition: STABLE Disposition: Home - Attestation Statements Document Initiated by Mayra: Yes Documenting Scribe: Nikita Saldaña Provider For Whom Mayra is Documenting (Include Credential): Maycol Garcia MD Scribe Attestation: I, Nikita Saldaña, scribed for Maycol Garcia MD on 05/29/19 at 2009. Scribe Documentation Reviewed: Yes Provider Attestation: The documentation as recorded by the Nikita carter accurately reflects the service I personally performed and the decisions made by me, Maycol Garcia MD Status of Scribe Document: Viewed
[2019-05-29 14:37] LABS: ABS Eosinophils 0.3 10^3/ul (0-0.6); ABS Monocytes 0.7 10^3/ul (0-0.8); ABS Neutrophils 4.1 10^3/ul (1.5-7.7); Eosinophil % 4.6 %; Hematocrit 29 % (42-52); Hemoglobin 10.1 g/dL (14.0-18.0); Lymphocyte % 16.4 %; Mean Corpuscular HGB Conc 34 g/dL (31-36); Mean Corpuscular Hemoglobin 31 pg (27-31); Mean Corpuscular Volume 90 fL (80-94); Mean Platelet Volume 11.7 fL (7.4-10.4); Nucleated Red Blood Cells % 0.1; Platelet Count 146 10^3/uL (150-450); Red Blood Count 3.26 10^6 /uL (4.18-5.48); Red Cell Distribution Width 14 % (10-15)
[2019-05-29 14:44] LABS: INR 1.11 (0.82-1.09)
[2019-05-29 14:54] LABS: Albumin 2.9 g/dL (3.2-5.2); Albumin/Globulin Ratio 1.3 (1-3); BUN/Creatinine Ratio 10.3 (8-20); EGFR African American 91.5 (>60); EGFR Non-African American 75.7 (>60); Globulin 2.3 g/dL (2-4); Potassium 3.9 mmol/L (3.5-5.0); Total Bilirubin 1.5 mg/dL (0.2-1.0); Total Protein 5.2 g/dL (6.4-8.9)
[2019-05-29 15:42] LABS: Activated Partial Thrombo Time >240.0 seconds (26.0-38.0)
[2019-05-29 16:21] VITALS: BP 133/104
[2019-05-29 16:55] LABS: INR 1.11 (0.82-1.09)
[2019-05-29 18:17] LABS: PT/After 1 Hour Incubation 10.8 seconds (9.4-12.5)
[2019-05-29 18:20] LABS: Activated Partial Thrombo Time >240.0 seconds (26.0-38.0)
[2019-05-30 15:13] LABS: LAC APTT 119 sec (25 - 37); LAC INR 1.1 (0.9-1.1); Prothrombin Time(LAC) 12.5 sec (9.4 - 12.5)
[2019-05-30 15:18] LABS: Thrombin Time (Bovine), P 21.1 sec
[2019-05-30 16:24] LABS: Coagulation Factor VIII Activi 155 % (55 - 200)
== END 2019-05-29 16:22 | disposition home or self-care (01) ==
LOC: ED 13:17
DX: R79.1 Abnormal coagulation profile (principal); I25.10 Atherosclerotic heart disease of native coronary artery without angina pectoris; E78.00 Pure hypercholesterolemia, unspecified; J44.9 Chronic obstructive pulmonary disease, unspecified; K50.90 Crohn's disease, unspecified, without complications; Z87.891 Personal history of nicotine dependence
CPT/HCPCS: 36415; 80053; 80500; 84597; 85025; 85210; 85230; 85240; 85250; 85260; 85270; 85610; 85613; 85730; 99284